=== PATIENT | male | born 1950 | race Caucasian/White ===

== ENCOUNTER 2022-04-04 07:26 | Outpatient (CLI) | payer MEDICARE, SELFPAY ==
--- NOTE | 2022-04-17 17:58 | WPDHOMESLEEP ---
Sleep Study - Home Unattended Date of Study: 04/04/22 Ordering Provider: Amalia Martinez NP Interpreting Provider: Marycarmen Andersen, DO Home Sleep Study Type: Watch PAT Height: 1.85 m Weight: 85.275 kg Body Mass Index: 24.7 Neck Circumference (inches): 16.5 [place]: 6 Reason for Sleep Study Multiple nighttime awakenings Sleep History The patient is a 72-year-old male with hypertension, hyperlipidemia, osteoarthritis and psoriasis that had a sleep study ordered by his primary care for evaluation of sleep apnea. The patient denies being awakening from sleep short of breath. He denies awakening at night with heartburn, belching or cough. He occasionally snores but it is rarely loudly enough others complain. He occasionally has trouble sleeping when he has a cold. He denies waking up gasping for air throughout the night. He denies having breathing problems at night observed by himself or others. He occasionally sweats excessively at night. He denies having heart palpitations or irregular heartbeats during the night. He rarely falls asleep during the day but never while driving. He denies sleep paralysis, cataplexy and hypnagogic / hypnopompic hallucinations. He denies having trouble at school or work due to sleepiness. He denies feeling afraid of going to sleep. He denies having nightmares. He rarely remembers his dreams. He denies having thoughts racing through his mind. He rarely feels sad or depressed. He frequently has anxiety. He occasionally has muscular tension. He denies noticing parts of his body jerk. He denies kicking during the night. He denies having crawling and aching feelings in his legs but occasionally has leg pain during the night. He occasionally grinds his teeth during sleep but never awakens with morning jaw pain. He is occasionally bothered by pain during the day and occasionally awakened by pain during the night. He rarely wakes up feeling stiff in the morning. He rarely wakes up with sore achy muscles. He denies waking up with pain in the neck, spine or joints. The patient goes to bed at 8:30 p.m. on weekdays and at 10:00 p.m. on the weekends. He is able to fall asleep quickly. He wakes up 3-4 times throughout the night for unknown reasons. When he awakens, he will watch television. He can take him 20 minutes to an hour to fall back asleep. He wakes up at 5:00 a.m. on both weekdays and weekends. He typically gets 4 hours of sleep per night. He will stay in bed for 10 minutes after waking up in the morning. He will occasionally has his girlfriend stated his house. He does not consume any caffeinated beverages within 2 hours of bedtime. He will engage in physical exercise before bedtime. He will watch television before falling asleep. He denies taking naps in the afternoon or the evening. He drinks 3 Pepsi's per day. He quit smoking cigarettes 11 years ago. He denies alcohol and recreational drug use. [facility] Past Medical History Medical History Elevated PSA, less than 10 ng/ml Encounter to establish care Hernia (~2019) Hyperlipidemia Hypertension Osteoarthritis of shoulders, bilateral Scalp psoriasis Sleeping difficulty Witnessed episode of apnea Family History Family History Father Cancer Hypertension Mother Heart disease Other Cancer Social History Social History Smoking status: Former smoker Alcohol intake: never Substance use: never Medications Home Medications Medication Instructions Recorded Confirmed Type aspirin 81 mg tablet,delayed 81 mg PO DAILY 03/09/22 03/12/22 History release carvedilol 25 mg tablet 25 mg PO Q12H 03/12/22 03/12/22 History cholecalciferol (vitamin D3) 125 125 mcg PO DAILY 03/12/22 03/12/22 History mcg (5,000 unit) capsule clobetasol 0.05 % scalp so
[2022-04-17 18:03] VITALS: BMI 24.7
--- NOTE | 2022-05-30 15:21 | SLEEP ---
instructed pt to f/u with dr escobedo she int. sleep test. he is confused by sleep result.
== END 2022-04-05 10:39 | disposition home or self-care (01) ==
PROVIDERS: PCP Nurse Practitioner Family; Visit Provider Nurse Practitioner Family
DX: G47.9 Sleep disorder, unspecified (principal); G47.33 Obstructive sleep apnea (adult) (pediatric)
CPT/HCPCS: 95800

== ENCOUNTER 2022-10-14 07:22 | Outpatient (CLI) | payer MEDICARE, SELFPAY ==
--- NOTE | 2022-11-04 12:29 | WPDSLEEPSTUD ---
Sleep Study Date of Study: 10/14/22 Ordering Provider: Amalia Martinez NP Interpreting Physician: Caitlin Osorio MD Sleep Study Type: CPAP Titration Height: 1.85 m Weight: 86.636 kg Body Mass Index: 25.2 Neck Circumference (inches): 16.5 [place]: 1 Reason for Sleep Study * 04/04/22 - Home sleep test showing mild sleep apnea with overall AHI 8.1 and desaturation to 87%. There were some central events during that study so he is not a good candidate for autoPAP. He presents for a CPAP titration. Sleep History Fili Ricardo is a 72 yo M with hypertension, hyperlipidemia, osteoarthritis and psoriasis that underwent a recent home sleep test 04/04/22 showing mild sleep apnea. He did not fill out a new sleep questionnaire for this study. The following sleep history is obtained from his previous home sleep test 04/04/22. His medical history includes hypertension, hyperlipidemia, osteoarthritis and psoriasis. The patient does not waken at night feeling short of breath.? He denies awakening at night with heartburn, belching or coughing.? He occasionally snores but it is rarely loudly enough others complain.? He occasionally has trouble sleeping when he has a cold.? He denies waking up gasping for air throughout the night.? He denies having breathing problems at night observed by himself or others.? He occasionally sweats excessively at night.? He denies having heart palpitations or irregular heartbeats during the night.? He rarely falls asleep during the day but never while driving.? He denies feeling paralyzed with strong emotion, or having vivid dreams on sleep onset or awakening. ? He denies having daytime difficulties due to sleepiness.? He denies feeling afraid of going to sleep.? He denies having nightmares.? He rarely remembers his dreams.? He denies having thoughts racing through his mind.? He rarely feels sad or depressed.? He frequently has anxiety.? He occasionally has muscular tension.? He denies noticing parts of his body jerk.? He denies kicking during the night.? He denies having crawling and aching feelings in his legs but occasionally has leg pain during the night.? He occasionally grinds his teeth during sleep but never awakens with morning jaw pain.? He is occasionally bothered by pain during the day and occasionally awakened by pain during the night.? He rarely wakes up feeling stiff in the morning.? He rarely wakes up with sore achy muscles.? He denies waking up with pain in the neck, spine or joints.? Normal bedtime is 8:30 p.m. on weekdays and at 10:00 p.m. on the weekends.? He is able to fall asleep quickly.? He wakes up 3-4 times throughout the night for unknown reasons.? When he awakens, he will watch television.? He can take him 20 minutes to an hour to fall back asleep.? He wakes up at 5:00 a.m. on both weekdays and weekends.? He typically gets 4 hours of sleep per night.? He will stay in bed for 10 minutes after waking up in the morning.? He will occasionally has his girlfriend stated his house.? He does not consume any caffeinated beverages within 2 hours of bedtime.? He will engage in physical exercise before bedtime.? He will watch television before falling asleep.? He denies taking naps in the afternoon or the evening.? Habits: Tobacco: quit over 11 years ago. Caffeine: 3 Pepsi sodas per day.? He denies alcohol and recreational drug use. [facility] Past Medical History Medical History Anxiety Elevated fasting glucose Elevated PSA, less than 10 ng/ml Encounter to establish care Hernia (~2019) Hyperlipidemia Hypertension Mild sleep apnea Osteoarthritis of shoulders, bilateral Scalp psoriasis Sleeping difficulty Witnessed episode of apnea Family History Family History Father Cancer Hypertension Mother Heart disease Other Cancer Social History Social History Sm
[2022-11-04 12:35] VITALS: BMI 25.2
--- NOTE | 2023-05-06 15:04 | SLEEP ---
pt is using dental appliance
== END 2022-10-15 07:16 | disposition home or self-care (01) ==
LOC: ANHCSM 07:25
PROVIDERS: PCP Nurse Practitioner Family; Visit Provider Nurse Practitioner Family
DX: G47.31 Primary central sleep apnea (principal); G47.33 Obstructive sleep apnea (adult) (pediatric); G47.61 Periodic limb movement disorder
CPT/HCPCS: 95811

== ENCOUNTER → 2023-11-29 08:34 | Outpatient (CLI) | payer MEDICARE, SELFPAY ==
--- NOTE | ~2023-11-29 | XR_ITS ---
XR foot LT min 3V DATE: 11/29/2023 08:50 INDICATION: Localized swelling, mass, lump, dorsum of foot TECHNIQUE: 4 views COMPARISON: None FINDINGS: There is prominent periarticular dorsal distal tarsal navicular spurring at the navicular c uneiform area, with some overlying soft tissue swelling. Mild plantar calcaneal enthesopathy without associated erosive change or periostitis. No fracture, dislocation, periosteal reaction or bone destruction. Anterior and posterior tibial artery calcifications. IMPRESSION: Prominent dorsal periarticular spur of the distal aspect of the tarsal navicular with ove rlying soft tissue swelling Mild plantar calcaneal enthesopathy Reviewed, dictated and finalized at location A. IMPRESSION: Prominent dorsal periarticular spur of the distal aspect of the tar hal navicular with overlying soft tissue swelling Mild plantar calcaneal enthesopathy
== END ==
PROVIDERS: PCP Nurse Practitioner Family; Visit Provider Nurse Practitioner Family
DX: R22.42 Localized swelling, mass and lump, left lower limb (principal); M77.32 Calcaneal spur, left foot
CPT/HCPCS: 73630

== ENCOUNTER → 2024-01-15 14:10 | Outpatient (CLI) | payer MEDICARE, SELFPAY ==
--- NOTE | ~2024-01-15 | XR_ITS ---
EXAMINATION: XR hand BI arthritis min 3V DATE: 01/15/2024 14:26 INDICATION: Pain in joints of right hand. TECHNIQUE: 4 views of right hand and 4 views of left hand on a total of 7 radiographs were obtained. COMPARISON: None. FINDINGS: RIGHT HAND: Bone alignment is normal. No fracture. There is mild osteoarthritis of second, fourth, an d fifth distal interphalangeal joints. There are soft tissue calcifications adjacent to third and fif th proximal interphalangeal joints. LEFT HAND: Bone alignment is normal. No fracture. There is mild osteoarthritis of second-fifth distal interphalangeal joints. There are soft tissue calcifications near fifth proximal interphalangeal vazquez nt. IMPRESSION: 1. Mild polyarticular osteoarthritis. 2. Periarticular soft tissue calcifications at multiple joints. Reviewed, dictated and finalized at location A.
== END ==
LOC: EXPTROY 14:15
PROVIDERS: PCP Nurse Practitioner Family; Visit Provider Nurse Practitioner Family
DX: M19.041 Primary osteoarthritis, right hand (principal); M19.042 Primary osteoarthritis, left hand
CPT/HCPCS: 73130

== ENCOUNTER → 2024-05-04 15:48 | Outpatient (CLI) | payer MEDICARE, SELFPAY ==
--- NOTE | ~2024-05-04 | XR_ITS ---
CHEST RADIOGRAPH, PA AND LATERAL CLINICAL HISTORY: R05.9 - Cough, unspecified . COMPARISON: None available TECHNIQUE: PA and lateral views of the chest. FINDINGS The cardiomediastinal silhouette is unremarkable. The lungs are clear. Visualized osseous structures and soft tissues are unremarkable. IMPRESSION: No focal infiltrate or effusion. Reviewed, dictated and finalized at location A. UDER OPERATOR
== END ==
LOC: EXPTROY 15:50
PROVIDERS: PCP Nurse Practitioner Family; Visit Provider Nurse Practitioner Family
DX: R05.9 Cough, unspecified (principal)
CPT/HCPCS: 71046

== ENCOUNTER 2024-09-08 11:15 | Outpatient (RCR) | payer MEDICARE, SELFPAY ==
--- NOTE | 2024-08-14 14:40 | OTOPEVAL1 ---
Assessment and note entered by Salty Webb, BRENNA/Bbuba, CHT OT Evaluation Information 08/14/24 Assessment Status Evaluation Diagnosis Chronic gout, unspecified, with tophus ICD-10 Condition Codes (OT) Joint stiffness of left hand M25.642,Pain in left hand M79.642 Subjective Information Patient underwent excision of left small finger nodule from the dorsum of his PIP joint. Healing was delayed due to wound dehiscence. He presents today with residual pain, stiffness, and edema restricting a functional fist/dumper mold cleaner with his left hand. He is right handed. Reported Pain Level Pain Score 0: Self Report Additional Pain Score Comments No pain at rest. Pain increases to 4/10 with exercises. Assessment OT Clinical Summary Patient referred to OT with a decline in left hand use following left small finger nodule excision. He presents with residual stiffness, weakness, and edema that limits a functional dumper mold cleaner and fist during ADLs. Skilled OT indicated to maximize functional left hand use via modalities, therapeutic exercise, manual therapy, and HEP instruction/progression. Plan of Care Interventions Therapeutic Exercise,Manual Therapy,Therapeutic Activities,Ultrasound,Paraffin OT Services Indicated Yes Treatment Frequency and 1x/week for 4 visits Duration These treatments will address the objective and functional deficits as defined above. The patient will be advanced safely and appropriately in order for the patient to progress towards his/her prior level of function. Additional exercises will be introduced and as well as a comprehensive home exercise program upon discharge, if needed, ?to ensure carryover of functional gains achieved in the clinic. This treatment plan has been reviewed and agreement upon by the patient.
--- NOTE | 2024-08-14 14:40 | OPREHPOC ---
Outpatient Therapy Plan of Care This is a Multidisciplinary Plan of Care that may contain components documented by all disciplines (PT, OT, and ST.) OT Problem 1 OT Problem #1 Knowledge Deficit OT Goal 1 Goal / Goal Update Patient to be independent with instructed materials. Target Visit 4 OT Problem 2 OT Problem #2 Impaired Range of Motion OT Goal 1 Goal / Goal Update Patient to improve functional ROM of the left small finger to improve a functional grasp during ADLs as demonstrated by: - being able to touch the small finger to his palm when making a fist - measuring <2 cm gap with hook fist Target Visit 4 OT Problem 3 OT Problem #3 Impaired Strength OT Goal 1 Goal / Goal Update Patient to improve functional showroom consultant strength of the left hand to improve a functional grasp during ADLs as demonstrated by: - improving left showroom consultant strength from 69 to 79 lbs. Target Visit 4
--- NOTE | 2024-09-08 12:04 | OTOPDC ---
Assessment and note entered by Salty Webb, OTR/L, ISAK OT D/C 09/08/24 Assessment Status Discharge Diagnosis Chronic gout, unspecified, with tophus ICD-10 Condition Codes (OT) Joint stiffness of left hand M25.642,Pain in left hand M79.642 Subjective Information - Patient underwent excision of left small finger nodule from the dorsum of his PIP joint. Healing was delayed due to wound dehiscence. - He reports improved hand use and flexibility, but notes he continues to have residual edema that prohibits his ROM - He reports experiencing reduced pain and is getting more comfortable with using his hand - He verbalizes concerns about the swelling, but does note that the swelling has improved in the finger Small finger improvements since the start of care: - MCP from 90 to 100 degrees - PIP from 75 to 80 degrees - DIP from 50 to 75 degrees - hook fist from 3 cm to 2 cm gap - full fist from 2 cm to 0 cm gap - left circuits engineer strength improved from 69 to 89 lbs. Reported Pain Level Pain Score 0: Self Report Additional Pain Score Comments No pain at rest or with use during ADLs. Reports pain if he bumps the finger. Assessment OT Clinical Summary Patient referred to OT with a decline in left hand use following left small finger nodule excision. His ROM and circuits engineer strength have made excellent progress. He is experiencing less pain and improved functional use of the hand. He continues to have residual edema. Reviewed HEP today and he is ready for discharge. D/C OT with patient independent with all materials. Plan of Care OT Services Indicated No
== END 2024-09-08 14:00 | disposition home or self-care (01) ==
LOC: ANHOT 11:15
PROVIDERS: PCP Nurse Practitioner Family; Visit Provider Physician Assistant Surgical
DX: M1A.9XX1 Chronic gout, unspecified, with tophus (tophi) (principal)
CPT/HCPCS: 97018; 97110; 97140; 97165

== ENCOUNTER 2024-12-21 12:49 | Outpatient (CLI) | payer MEDICARE, SELFPAY ==
--- OUTSIDE RECORDS SUMMARY | 2024-12-21 12:54 | XMS_ITS | Data Portability ---
Author Organization [employer], [facility] Address [address] [address] Assessment Encounter Date Assessment Date Assessment LastModified by Organization Details LastModified Time 05/09/2022 05/09/2022 72 y/o M here for a group medical visit focusing on optimizing BMAC procedure for bilateral shoulders. Preprocedural screening labs were reviewed and discussed with patient, and post-procedure plan was discussed in detail. Recommend patient continue current vitamin D supplementation. I did have a discussion with him about his PSA and A1C levels. He reports A1C that was performed approximately 8 weeks ago was 5.1, but he has had recent weight gain, which he reports has caused elevation of this in the past. Regarding his PSA, he reports he has had follow up with both his primary care physician and urologist for this and was told the level was not concerning given his age. Feel patient would benefit from attending health optimization program. He was given information regarding same. All questions answered. May follow up if he wishes to pursue health optimization. Return to clinic sooner for worsening symptoms. Greater than 20 minutes was spent with the patient in direct evaluation and subsequent care planning. Note: billing done solely on interaction of patient with NESSA [email or web address] Not available 05/09/2022 11:28:04 Plan of Treatment Reminders Order Date Submit Date Provider Last Modified By Organization Details Last Modified Time Details Appointments BIOLOGIC FOLLOW UP 2024 08:15A Matthew Graham, DO Not available Not available Not available Lab None recorded. Referral None recorded. Procedures None recorded. Surgeries None recorded. Imaging XR, hip, bilateral 11/13/ 025 Not available 11/18/2024 09:55:55 US, lower extremity , nonvascul ar 2024 025 Not available 11/18/2024 09:55:56 XR, shoulder - ROOM 2 2021 022 Not available 05/07/2022 12:54:41 US, upper extremity , nonvascul ar 2021 022 [email or web address] Not available 05/07/2022 16:41:04 Medication Orders None recorded. Patient TargetsNo targets recorded. Patient InstructionsNo instructions recorded. Reason for Referral None Reported. Results Created Date Observation Date Name Description Value Unit Range Abnormal Flag Note LastModifiedBy Organization Detail LastModifiedTime 05/01/2005/05/2022 CBC (INCL UDES DIFF/ PLT) white blood cell count 6.0 thous and/u L 3.8-10 .8 normal Not Available [address], [address], 05/05/2022 13:45:32 05/01/20 22 05/05/2022 CBC (INCL UDES DIFF/ PLT) red blood cell count 4.92 viola on/uL 4.20-5 .80 normal Not Available [address], [address], 05/05/2022 13:45:32 05/01/20 22 05/05/2022 CBC (INCL UDES DIFF/ PLT) hemoglobin 14.9 g/dL 13.2-1 7.1 normal Not Available [address], [address], 05/05/2022 13:45:32 05/01/20 22 05/05/2022 CBC (INCL UDES DIFF/ PLT) hematocrit 43.9 % 38.5-5 0.0 normal Not Available [address], [address], 05/05/2022 13:45:32 05/01/20 22 05/05/2022 CBC (INCL UDES DIFF/ PLT) MCV 89.2 fL 80.0-1 00.0 normal Not Available [address], [address], 05/05/2022 13:45:32 05/01/20 22 05/05/2022 CBC (INCL UDES DIFF/ PLT) MCH 30.3 pg 27.0-3 3.0 normal Not Available [address], [address], 05/05/2022 13:45:32 05/01/20 22 05/05/2022 CBC (INCL UDES DIFF/ PLT) MCHC 33.9 g/dL 32.0-3 6.0 normal Not Available [address], [address], 05/05/2022 13:45:32 05/01/20 22 05/05/2022 CBC (INCL UDES DIFF/ PLT) RDW 12.5 % 11.0-1 5.0 normal Not Available [address], [address], 05/05/2022 13:45:32 05/01/20 22 05/05/2022 CBC (INCL UDES DIFF/ PLT) platelet count 249 thous and/u L 140-40 0 normal Not Available [address], [address], 05/05/2022 13:45:32 05/01/20 22 05/05/2022 CBC (INCL UDES DIFF/ PLT) MPV 11.2 fL 7.5-12 .5 normal Not Available [address], [address], 05/05/2022 13:45:32 05/01/20 22 05/05/2022 CBC (INCL UDES DIFF/ PLT) absolute neutrophils 3312 cells /uL 1500-7 800 normal Not Available [address], [address], 05/05/2022 13:45:32 05/01/20 22 05/05/2022 CBC (INCL UDES DIFF/ PLT) absolute lymphocytes 1776 cells /uL 850-39 00 normal Not Available [address], [address], 05/05/2022 13:45:32 05/01/20 22 05/05/2022 CBC (INCL UDES DIFF/ PLT) absolute monocytes 702 cells /uL 200-95 0 normal Not Available [address], [address], 05/05/2022 13:45:32 05/01/20 22 05/05/2022 CBC (INCL UDES DIFF/ PLT) absolute eosinophils 162 cells /uL 15-500 normal Not Available [address], [address], 05/05/2022 13:45:32 05/01/20 22 05/05/2022 CBC (INCL UDES DIFF/ PLT) absolute basophils 48 cells /uL 0-200 normal Not Available [address], [address], 05/05/2022 13:45:32 05/01/20 22 05/05/2022 CBC (INCL UDES DIFF/ PLT) neutrophils 55.2 % normal Not Available [address], [address], 05/05/2022 13:45:32 05/01/20 22 05/05/2022 CBC (INCL UDES DIFF/ PLT) lymphocytes 29.6 % normal Not Available [address], [address], 05/05/2022 13:45:32 05/01/20 22 05/05/2022 CBC (INCL UDES DIFF/ PLT) monocytes 11.7 % normal Not Available [address], [address], 05/05/2022 13:45:32 05/01/20 22 05/05/2022 CBC (INCL UDES DIFF/ PLT) eosinophils 2.7 % normal Not Available [facility] [address] [place], [address], 05/05/2022 13:45:32 05/01/20 22 05/05/2022 CBC (INCL UDES DIFF/ PLT) basophils 0.8 % normal Not Available [facility] [address] [place], [address], 05/05/2022 13:45:32 05/01/20 22 05/05/2022 HS CRP hs CRP 0.9 mg/L normal Refer ence Range Optim al <1.0 Amanda galindo PS et al. Endoc r Pract .2017 ;23(S uppl 2):1- 87. For ages >17 Years : hs-CR P mg/L Risk Accor ding to AHA/C DC Guide lines <1.0 Lower relat verenice cardi ovasc ular risk. 1.0-3 .0 [place] ge relat verenice cardi ovasc ular risk. 3.1-1 0.0 Highe r relat verenice cardi ovasc ular risk. Consi amando retes ting in 1 to 2 weeks to exclu de a benig n trans ient eleva tion in the basel ine CRP value secon brigette to infec tion or infla mmati on. >10.0 Persi stent eleva tion, upon retes ting, may be assoc iated with infec tion and infla mmati on. Not Available [facility] [address] [place], [address], 05/05/2022 13:45:33 05/01/20 22 05/05/2022 PSA, TOTAL PSA, total 4.11 NG/mL < or = 4.00 high The total PSA value from this assay syste m is stand ardiz ed again st the WHO stand ricky. The test resul t will be appro ximat hanane 20% lower when cornelio red to the equim olar- stand ardiz ed total PSA (Jacobs man Coult er). Cornelio rison of seria l PSA resul ts shoul d be inter prete d with this fact in mind. This test was perfo rmed using the Sieme ns chemi lumin escen t metho d. Value s obtai jigna from diffe rent assay metho ds canno t be used inter alejandro eably . PSA level s, regar dless of value , shoul d not be inter prete d as absol ak chin evide nce of the prese nce or absen ce of disea se. Not Available [facility] [address] [address], [place], [address], 05/05/2022 13:45:34 05/01/2005/05/2022 VITAM IN D,25- OH,TO CARTER,I A vitamin D,25-oh,tota l,ia 61 NG/mL 30-100 normal Vitam in D Statu s 25-OH Vitam in D: Defic iency : <20 ng/mL Insuf ficie ncy: 20 - 29 ng/mL Optim al: > or = 30 ng/mL For 25-OH Vitam in D testi ng on patie nts on D2-kidd pplem entat ion and patie nts for whom quant itati on of D2 and D3 fract ions is requi red, the [facility] e[facility](TM ) 25-OH VIT D, (D2,D 3), LC/MS /MS is recom leanna d: order code [id number] (el ents >2yrs ). See Note 1 Note 1 For addit ional infor janna mahajan refer to http: //lul Trotter stDia gnost ics.c om/fa q/FAQ 199 (This link is being provi ded for infor haritha johnston/ yvrose gonzalez purpo ses only. ) Not Available [facility] [address] [address], [place], [address], 05/05/2022 13:45:34 05/01/2005/05/2022 HEMOG LOBIN A1C hemoglobin A1C 5.9 %_of_ total _HGB <5.7 high For someo ne witho ut known diabe wyatt, a hemog lobin A1c value betwe en 5.7% and 6.4% is consi stent with predi abete s and shoul d be confi rmed with a follo w-up test. For someo ne with known diabe wyatt, a value <7% indic ates that their diabe wyatt is well contr olled . A1c targe ts shoul d be indiv idual ized based on durat ion of diabe wyatt, age, comor bid condi tions , and other consi derat ions. This assay resul t is consi stent with an incre ased risk of diabe wyatt. Curre ntly, no conse nsus exist s regar ding use of hemog lobin A1c for diagn osis of diabe wyatt for child dia. Not Available [facility] [address] [place], [address], 05/05/2022 13:45:35 05/01/20 22 05/05/2022 TESTO STERO NE, FREE (DIAL YSIS) AND TOTAL ,MS testosterone , total, MS 404 NG/dL 250-11 00 For addit ional infor janna mahajan e refer to https ://ed ucati on.qu estdi [employer]. com/f aq/FA Q165 (This link is being provi ded for infor haritha nal/e ducat ional purpo ses only. ) (Note ) This test was devel oped and its alexei tical perfo rmanc e serge cteri stics have been deter mined by [employer]. It has not been clear ed or appro mariana by the FDA. This assay has been valid ated pursu ant to the CLIA regul ation s and is used for clini mika purpo ses. Not Available [facility] [address] [place], [address], 05/05/2022 13:45:35 05/01/20 22 05/05/2022 TESTO STERO NE, FREE (DIAL YSIS) AND TOTAL ,MS testosterone , free 55.7 pg/mL 30.0-1 35.0 (Note ) This test was devel oped and its alexei tical perfo rmanc e serge cteri stics have been deter mined by [facility]. It has not been clear ed or appro mariana by the FDA. This assay has been valid ated pursu ant to the CLIA regul ation s and is used for clini mika purpo ses. MD[facility] med fusio n [address] [facility] [address] [facility] [address] [phone] Roddy renee MD Not Available [facility] [place] [address] [place], [address], 05/05/2022 13:45:35 11/14/1911/14/2024 LAB DEVEL OPED TESTI NG lab developed testing normal Testi ng Perfo rmed At: [facility], [address] [place] [address], Labor atory Dire tor: Saurabh Frazier M.D Serum Pregn enolo ne, DHT, Estro ne, Estri ol, RT3, CO-Q1 0, Total Testo stero ne LC/MS , Parish stene sangita LC/MS , Proge stero ne LC/MS , and Estra diol LC/MS were devel oped and their perfo rmanc e serge cteri stics deter mined by [facility]. It has not been clear ed or appro mariana by the FDA. The labor atory is regul ated under CLIA and quali fied to perfo rm high- compl exity testi ng. These tests are used for clini mika purpo ses. It shoul d not be regar ded as inves tigat ional or for resea h. Not Available [facility] [place] [address] [place], [address], 11/17/2024 17:10:18 11/14/19 25 11/14/2024 BTMG EXPAN DED MALE PRE comment: See Compon ents normal Testi ng Perfo rmed At: [facility], [address], [place] [address], Labor atory Direc tor: Saurabh Frazier M.D Not Available [facility] [place] [address], [place], [address], 11/17/2024 17:10:18 11/14/1911/17/2024 ESTRA DIOL, LC/MS estradiol, lc/MS 19.1 pg/mL <29.0 normal Testi ng Perfo rmed At: [facility], [address], [place] [address], Labor atory Direc tor: Saurabh Frazier M.D Not Available [facility] - [address] [place], [address], 11/17/2024 17:10:19 11/14/19 25 11/14/2024 PSA, TOTAL PSA, total 1.830 NG/mL 0.000- 4.000 normal Testi ng Perfo rmed At: [facility], [address], [place] [address], Labor atory Direc tor: Saurabh Frazier M.D The above test is perfo rmed by [facility] [place]. Patie nt resul ts perfo rmed by diffe rent assay metho ds may not be cornelio rable . Not Available [facility] [place] [address], [place], [address], 11/17/2024 17:10:19 11/14/1911/14/2024 T4, FREE T4, free 1.58 NG/dL 0.89-1 .76 normal Testi ng Perfo rmed At: [facility], [address], [place] [address], Labor atory Direc tor: Saurabh Frazier M.D Not Available [facility] - [address], [address], 11/17/2024 17:10:20 11/14/1911/14/2024 THYRO ID PEROX IDASE ABS thyroid peroxidase abs 30 IU/mL <60 normal Testi ng Perfo rmed At: [facility], [address], [place] [address], Labor atory Direc tor: Saurabh Frazier M.D Not Available [facility] - [address], [address], 11/17/2024 17:10:21 11/14/1911/14/2024 CMP WITH GFR glucose 128 mg/dL 65-100 high Testi ng Perfo rmed At: [facility], [address], [place] [address], Labor atory Direc tor: Saurabh Frazier M.D Not Available [facility] - [address], [address], 11/17/2024 17:10:21 11/14/1911/14/2024 CMP WITH GFR BUN 24 mg/dL 6-20 high Not Available [facility] - [address], [address], 11/17/2024 17:10:21 11/14/1911/14/2024 CMP WITH GFR creatinine, serum 1.3 mg/dL 0.7-1. 3 normal Not Available [facility] - [address], [address], 11/17/2024 17:10:21 11/14/1911/14/2024 CMP WITH GFR sodium 142 mmol/ L 136-14 5 normal Not Available [facility] - [address], [address], 11/17/2024 17:10:21 11/14/1911/1411/14/2024 CMP WITH GFR potassium 4.5 mmol/ L 3.5-5. 1 normal Not Available [facility] - [address], [address], 11/17/2024 17:10:21 11/14/19 25 11/14/2024 CMP WITH GFR chloride 106 mmol/ L 100-11 0 normal Not Available [facility] - [address], [address], 11/17/2024 17:10:21 11/14/19 25 11/14/2024 CMP WITH GFR CO2 24 mmol/ L 20-31 normal Not Available [facility] - [address], [address], 11/17/2024 17:10:21 11/14/19 25 11/14/2024 CMP WITH GFR calcium 9.1 mg/dL 8.3-10 .6 normal Not Available [facility] - [address], [address], 11/17/2024 17:10:21 11/14/19 25 11/14/2024 CMP WITH GFR total protein 6.5 g/dL 5.7-8. 2 normal Not Available [facility] - [address], [address], 11/17/2024 17:10:21 11/14/19 25 11/14/2024 CMP WITH GFR albumin 4.3 g/dL 3.2-4. 8 normal Not Available [facility] - [address], [address], 11/17/2024 17:10:21 11/14/19 25 11/14/2024 CMP WITH GFR bilirubin, total 0.5 mg/dL 0.2-1. 1 normal Not Available [facility] - [address], [address], 11/17/2024 17:10:21 11/14/19 25 11/14/2024 CMP WITH GFR alkaline phosphatase 80 U/L 45-115 normal Not Available [facility] - [address], [address], 11/17/2024 17:10:21 11/14/19 25 11/14/2024 CMP WITH GFR ALT 43 U/L 0-48 normal Not Available [facility] - [address], [address], 11/17/2024 17:10:21 11/14/19 25 11/14/2024 CMP WITH GFR AST 27 U/L 0-38 normal Not Available [facility] - [address], [address], 11/17/2024 17:10:21 11/14/19 25 11/14/2024 CMP WITH GFR albumin/glob ulin ratio 2.0 0.8-2. 0 normal Not Available [facility] - [address], [address], 11/17/2024 17:10:21 11/14/19 25 11/14/2024 CMP WITH GFR BUN/creat ratio N/A 7.3 - 21.7 normal Not Available [facility] - [address], [address], 11/17/2024 17:10:21 11/14/19 25 11/14/2024 CMP WITH GFR globulin 2.2 g/dL 2.1-3. 6 normal Not Available [facility] - [address], [address], 11/17/2024 17:10:21 11/14/19 25 11/14/2024 CMP WITH GFR GFR, estimated 58 mL/mi n normal If Afric an-Am kal n, resul t is: >60 Calcu latio n of estim ated GFR is based on the MDRD Study predi ction equat ion F verenice Stage s of Chron ic Kidne y Disea se * *Stag e* *GFR Level * *Desc ripti on* Stage 1 90 ml/mi n or more Healt hy Kidne ys or Kidne y damag e with mariangel l or high GFR Stage 2 60 to 89 ml/mi n Kidne y damag e and mild decre ase in GFR Stage 3 30 to 59 ml/mi n Moder ate decre ase in GFR Stage 4 15 to 29 ml/mi n Sever e decre ase in GFR Stage 5 < 15 ml/mi n Kidne y failu re, or on dialy sis Not Available [facility] - [address], [address], 11/17/2024 17:10:21 11/14/19 25 11/14/2024 LH LH 4.8 mIU/m L 3.1-34 .6 normal Testi ng Perfo rmed At: [facility], [address] [place] [address], Labor atory Direc tor: Saurabh Frazier M.D Not Available [facility] - [address], [address], 11/17/2024 17:10:22 11/14/19 25 11/14/2024 VITAM IN B12 vitamin B12 338 pg/mL 211-91 1 normal Testi ng Perfo rmed At: [facility], [address] [place] [address], Labor atory Direc tor: Saurabh Frazier M.D Not Available [facility] - [address], [address], 11/17/2024 17:10:22 11/14/19 25 11/14/2024 TESTO STERO NE LCMS TOT albumin 4.3 g/dL 3.2-4. 8 normal Not Available [facility] - [address], [address], 11/17/2024 17:10:23 11/14/19 25 11/14/2024 TESTO STERO NE LCMS TOT sex hormone bind globulin 41 nmol/ L 22-113 normal Not Available [facility] - [address], [address], 11/17/2024 17:10:23 11/14/19 25 11/17/2024 TESTO STERO NE LCMS TOT testosterone , free lc/MS 6.7 NG/dL 3.7-20 .0 normal Testi ng Perfo rmed At: [facility], [address], [place] [address], Labor atory Direc tor: Saurabh Frazier M.D Not Available [facility] - [address], [address], 11/17/2024 17:10:23 11/14/19 25 11/17/2024 TESTO STERO NE LCMS TOT testosterone , total lc/MS 377.9 NG/dL 264.0- 916.0 normal Not Available [facility] - [address], [address], 11/17/2024 17:10:23 11/14/1911/14/2024 T3, FREE T3, free 2.9 pg/mL 2.3-4. 2 normal Testi ng Perfo rmed At: [facility], [address], [place] [address], Labor atory Direc tor: Saurabh Frazier M.D Not Available [facility] - [address], [address], 11/17/2024 17:10:23 11/14/19 25 11/14/2024 TSH TSH 1.308 uIU/m L 0.550- 4.780 normal Testi ng Perfo rmed At: [facility], [address], [place] [address], Labor atory Direc tor: Saurabh Frazier M.D Not Available [facility] - [address], [address], 11/17/2024 17:10:24 11/14/19 25 11/14/2024 CBC hematocrit 47.2 % 42.0-5 6.0 normal Testi ng Perfo rmed At: [facility], [address] [facility] [address], Labor atory Direc tor: Saurabh Frazier M.D Not Available [facility] - [address], [address], 11/17/2024 17:10:24 11/14/19 25 11/14/2024 CBC hemoglobin 14.6 g/dL 13.2-1 8.0 normal Not Available [facility] - [address], [address], 11/17/2024 17:10:24 11/14/19 25 11/14/2024 CBC red blood cell 4.72 M/uL 4.20-6 .00 normal Not Available [facility] - [address], [address], 11/17/2024 17:10:24 11/14/19 25 11/14/2024 CBC white blood cell 6.5 K/uL 3.9-11 .4 normal Not Available [facility] - [address], [address], 11/17/2024 17:10:24 11/14/19 25 11/14/2024 CBC MCV 100 fL 83-102 normal Not Available [facility] - [address], [address], 11/17/2024 17:10:24 11/14/19 25 11/14/2024 CBC MCHC 30.9 g/dL 29.5-3 5.5 normal Not Available [facility] - [address], [address], 11/17/2024 17:10:24 11/14/19 25 11/14/2024 CBC MCH 30.9 pg 26.0-3 4.0 normal Not Available [facility] - [address], [address], 11/17/2024 17:10:24 11/14/19 25 11/14/2024 CBC RDW 14.0 % 11.0-1 5.5 normal Not Available [facility] - [address], [address], 11/17/2024 17:10:24 11/14/19 25 11/14/2024 CBC platelet count 250 k/uL 140-40 0 normal Not Available [facility] - [address], [address], 11/17/2024 17:10:24 11/14/19 25 11/14/2024 CBC MPV 11.4 fL 7.5-11 .6 normal Not Available [facility] - [address], [address], 11/17/2024 17:10:24 11/14/19 25 11/14/2024 VITAM IN D,25- HYDRO XY vitamin D,25-oh,tota l 77 NG/mL 30-100 normal Testi ng Perfo rmed At: [facility], [address] [place] [address], Labor atory Direc tor: Saurabh Frazier M.D Notes : Thera py is based on the measu remen t of Total Vitam in D (25-O H). Most exper ts agree that Vitam in D defic iency shoul d be = or < 20 ng/ml . Vitam in D insuf ficie ncy is recog nized as 21 - 29 ng/ml . The prefe rred level for Vitam in D (25-O H)is recom leanna d to be 30 - 100 ng/ml . Vitam in D > 150 ng/ml is consi dered virginie tiall y toxic . Not Available [facility] - [address], [address], 11/17/2024 17:10:25 11/14/19 25 11/14/2024 PROLA CTIN prolactin 7.3 NG/mL 2.1-17 .7 normal Testi ng Perfo rmed At: [facility], [address], [place] [address], Labor atory Direc tor: Saurabh Frazier M.D Not Available [facility] - [address], [address], 11/17/2024 17:10:25 11/14/1911/14/2024 HEMOG LOBIN A1C hemoglobin A1C 6.1 % < 5.7 high Testi ng Perfo rmed At: [facility], [address], [place] [address], Labor atory Direc tor: Saurabh Frazier M.D Diagn osis HbA1c Level Mariangel l <5.7 % Predi abete s 5.7-6 .4 % Diabe wyatt = or >6.5 % Not Available [facility] - [address], [address], 11/17/2024 17:10:26 11/14/1911/14/2024 CRP, INFLA MMATI ON CRP, inflammation 1.8 mg/L <5.0 normal Testi ng Perfo rmed At: [facility], [address], [place] [address], Labor atory Direc tor: Saurabh Frazier M.D Not Available [facility] - [address], [address], 11/17/2024 17:10:26 Result Notes None recorded. Problems No Known Problems Medical Equipment None Reported. Allergies No known drug allergies Medications Name Sig Start Date Stop Date Status Note LastModified by Organization Details LastModified Time diclofenac 75 mg-misoprost ol 200 mcg tablet,immed iate,delayed release TAKE 1 TABLET BY MOUTH TWICE DAILY WITH MEALS NEEDED active Not Available Not Available No t Available carvedilol 25 mg tablet TAKE 1 TABLET BY MOUTH TWICE DAILY active Not Available Not Available No t Available carvedilol 12.5 mg tablet TAKE 1 TABLET BY MOUTH TWICE DAILY active Not Available Not Available No t Available clindamycin HCl 300 mg capsule TAKE 1 CAPSULE BY MOUTH EVERY 12 HOURS active Not Available Not Available No t Available ammonium lactate 12 % lotion APPLY TWICE DAILY TO ARMS AND HANDS TO INCREASE MOISTURE AND REDUCE EASY BRUISING. IT CAN ALSO BE USED SAFELY ON NECK, CHEST AND LEGS IF DESIRED. FACIAL USE IS FINE WELL, BUT SCENT IS SOMETIMES BOTHERSOME active Not Available Not Available N ot Available benzonatate 200 mg capsule TAKE 1 CAPSULE BY MOUTH THREE TIMES DAILY NEEDED FOR COUGH active Not Available Not Available No t Available atenolol 100 mg tablet TAKE 1 TABLET BY MOUTH ONCE DAILY active Not Available Not Available No t Available prednisone 20 mg tablet TAKE 2 TABLETS BY MOUTH ONCE DAILY IN THE MORNING FOR 2 DAYS, THEN 1 TABLET ONCE DAILY FOR 5 DAYS active Not Available Not Available No t Available amlodipine 2.5 mg tablet TAKE 2 TABLETS BY MOUTH ONCE DAILY IN THE MORNING AND 1 IN THE EVENING active Not Available Not Available Not Available allopurinol 100 mg tablet TAKE 2 TABLETS BY MOUTH ONCE DAILY active Not Available Not Available No t Available tramadol 50 mg tablet TAKE 1 TABLET BY MOUTH EVERY 6 HOURS NEEDED active Not Available Not Available No t Available cephalexin 500 mg capsule TAKE FOUR CAPSULES BY MOUTH ONE HOUR BEFORE APPOINTMENT active Not Available Not Available Not Available clotrimazole -betamethaso ne 1 %-0.05 % topical cream APPLY AND RUB IN A THIN FILM TO AFFECTED AREAS TWICE DAILY (MORNING AND EVENING) active Not Available Not Available No t Available venlafaxine 50 mg tablet TAKE 1 TABLET BY MOUTH ONCE DAILY active Not Available Not Available No t Available diclofenac sodium 75 mg tablet,delay ed release Take 1 tablet twice a day by oral route. active Not Available Not Available No t Available irbesartan 150 mg tablet TAKE 1 TABLET BY MOUTH ONCE DAILY active Not Available Not Available No t Available diazepam 10 mg tablet ARRIVE 15 MINUTES AND TAKE ONE TABLET BY MOUTH IN CLINIC AND REPEAT DIRECTED active Not Available Not Available No t Available zolpidem 10 mg tablet TAKE ONE TABLET BY MOUTH ONCE TO TAKE ON THE NIGHT OF SLEEP STUDY active Not Available Not Available No t Available methylpredni solone 4 mg tablets in a dose pack TAKE BY MOUTH DIRECTED ON INSIDE OF PACKAGE active Not Available Not Available No t Available colchicine 0.6 mg tablet TAKE 2 TABLETS BY MOUTH AT THE FIRST SIGN OF FLARE, FOLLOWED BY 1 TABLET 1 HOUR LATER NEEDED. DAY 2 AND AFTER TAKE 1 TABLET 1 TO 2 TIMES PER DAY UNTIL FLARE RESOLVES. CALL IF NO IMPROVEMENT active Not Available Not Available Not Available clobetasol 0.05 % scalp solution APPLY TO THE AFFECTED AREA(S) ONCE DAILY NEEDED FOR PSORIASIS active Not Available Not Available No t Available atenolol 50 mg tablet TAKE 1 TABLET BY MOUTH ONCE DAILY active Not Available Not Available No t Available irbesartan 300 mg tablet TAKE 1 TABLET BY MOUTH ONCE DAILY active Not Available Not Available No t Available ezetimibe 10 mg tablet TAKE 1 TABLET BY MOUTH ONCE DAILY active Not Available Not Available No t Available tadalafil 5 mg tablet TAKE 1 TABLET BY MOUTH ONCE DAILY active Not Available Not Available No t Available venlafaxine active Not Available Not A vailable Not Available carvedilol active Not Available Not Av ailable Not Available misoprostol active Not Available Not A vailable Not Available ezetimibe active Not Available Not Peggy ilable Not Available ID NOW COVID-19 Test Kit TEST DIRECTED TODAY active Not Available Not Available No t Available Vitals Date Recorded Body height Body mass index (BMI) Body weight Heart rate Systolic And Diastolic Provider Name and Address Organization Details Last Updated DateTime 11/13/2024 185.42 cm 25.1 kg/m2 96070.55 g 74 /min 132/78 mm[Hg] Claire Dugan [facility] 11/13/2024 09:48:20 Date Recorded Body height Body mass index (BMI) Body weight Provider Name and Address Organization Details Last Updated DateTime 05/01/2022 185.42 cm 25.1 kg/m2 09057.55 g Katlyn Bardales [facility] 05/01/2022 08:47:14 Date Recorded Body height Body mass index (BMI) Body weight Heart rate Systolic And Diastolic Provider Name and Address Organization Details Last Updated DateTime 05/09/2022 185.42 cm 25.1 kg/m2 70775.55 g 69 /min 160/77 mm[Hg] Patricia [facility] 10:43:10 Social History None recorded. Functional Status None recorded. Mental Status None recorded. Family History Relationship Description Onset Age of this Age Resolved Age Notes LastModified by Organization Details LastModified Time Unspecified Relation Heart disease [email or web address] Not available 2024 09:48:43 Unspecified Relation Hypertensive disorder [email or web address] Not available 2024 09:48:49 Unspecified Relation Malignant neoplastic disease [email or web address] Not available 2024 09:48:58 Medical History Condition Response HIV or AIDS N Coronary Artery Disease N Other Cancer N Gout N Kidney Stones N Hyperthyroidism N Breast Cancer N Hernia Y Head Trauma/Injury N Lung Cancer N Blood Clots N COPD N Depression N Hypothyroidism N Lung Disease N Pneumonia N Pacemaker N Parkinson's N Anxiety Disorder N Multiple Sprains N Arthritis Y Alcohol / Substance Abuse N Kidney Cancer N Cancer N Stroke N Melanoma N Amparo Danlos Syndrome (EDS) N Bowel Dysfunction N Neck Injury N Leg or Foot Ulcers N High Cholesterol N Skin Cancer N Liver Disease N Rheumatoid Arthritis N Headaches N Fibromyalgia N Gastric Issues N Concussion N Kidney Disease N Heart Problems N Scoliosis N Chronic use of Pain Medication N Prostate Cancer N Migraines N Thyroid Problems N Alzheimers N DVT N Autoimmune Disorder N Anemia N Multiple Sclerosis N Tendon Tear N Ulcers N Heart Attack ([place]) N Osteopenia N Diabetes N Bleeding Disorder N Seizures/Epilepsy N Cardiac Stent N Tuberculosis N A-FIB N BPH N Lymphoma N Urinary Tract Infection N Back Problems N Diverticulitis N Dementia N Asthma N Vision Problems N Lupus N Fci Medication Use N Peripheral Vascular Disease N Sleep Apnea N Sleep Disorder N GERD/Reflux N Hepatitis N Aneurysm N Thyroid Cancer N Heart Disease N Bronchitis N Pulmonary Embolism N Hypertension Y Osteoporosis N Past Encounters Encounter ID Performer Location Encounter Start Date Encounter Closed Date Diagnosis/Indication Diagnosis SNOMED-CT Code Diagnosis ICD10 Code Diagnosis Note [id number] Leo Graham DO [facility] [address] [facility] ,[address] [place] [address] 05/01/2022 08:04:08 05/07/2022 12:54:41 Pain of shoulder region 80893321 M25.511 M25.512 I discussed with the patient today and we will continue to follow him for his shoulders and he will decide which way he would like to go with treatment. We did discuss possible steroid injection, physical therapy, biologic injection, surgical referral. The patient is very dedicated to avoiding a surgery at this time. We did discuss this at length. He is aware the biologic treatment would be investigat ional in nature and no results could be guaranteed from this type of treatment. He will think over his options and let us know which way he would like to proceed. [id number] MAICO CASTILLO PA-C [facility] [address] [facility] ,[address] [place] [address] 05/09/2022 10:28:37 05/15/2022 16:43:53 Bilateral shoulder osteoarthritis [id number] M19.011 M19.012 [id number] [facility] [address] [facility] ,[address] [place] [address] 11/13/2024 08:11:40 11/18/2024 09:55:55 Pain of hip region [id number] M25.551 M25.552 We discussed several different options for potential treatment including physical therapy, steroid injection, surgical referral as well as biologic therapy. The patient has had success with biologic therapy but he is aware that this would be investigat ional in nature and no results can be guaranteed from this type of treatment. He will still think over his options and let me know which way he wants to proceed. I did spend over 20 minutes total in evaluation of the patient, review of records and results, and/or the intake process. Health Concerns Section Related Observation LastModified by Organization Detai ls LastModified Time None Recorded Concern Status LastModified by Organization Details LastModified Time None Recorded Advance Directives Directive None Recorded Payers Insurance Date Sequence Insurance Name Policy Number Policy Krishnan Covered Member ID Krishnan Member ID Guarantor Name 12/07/2024 2 [employer] (MEDICARE SUPPLEMENT) Fili Ricardo [id number] Fili Ricardo 12/07/2024 1 MEDICARE [place]: S Fili Ricardo [id number] Fili Ricardo 11/10/2024 2 [facility] Fili Ricardo [id number] Fili Ricardo Notes Date Note Type Note Provider Name and Address Organization Details Recorded Time 05/01/2022 text/html Patient is a 72-year-old male who is seen today for bilateral shoulder pain. He states this has been present for several years at this point. Gradually worsened over time. Overhead work is very painful. This is where he notices it most. Is usually a dull achy pain after that. There is been a popping sensation at times. He did end up having a steroid injection into the left and the PRP injection into the right both of which had some mild beneficial improvement. He is looking for more longstanding [place] [address], [place], [address], [employer] [place] 05/06/2022 14:18:37 05/09/2022 text/html 72 y/o M present s for group medical visit focusing on treatment optimization for upcoming biologic treatment. Patient has an upcoming BMAC treatment scheduled for bilateral shoulders on 05/19/2022. He presents today for lab review and to discuss post-procedural recommendations. Today he reports continued pain in the right and left shoulder, which has been gradually worsening for several years. He denies any new or different symptoms since his initial visit on 05/01/2022. He otherwise denies acute complaints, including no fever or recent illness, CP, SOB. MAICO CASTILLO PA-C [address] [facility], [place], [address], [employer] [place] 05/09/2022 11:45:38 11/13/2024 text/html The patient is a 74-year-old male who presents for evaluation of bilateral hip pain, which he reports began approximately 30 to 45 days ago. There was no known injury. His pain is overall dull but can be sharp in the morning when he gets up out of bed. It is associated with stiffness and variable in its severity level. He has noticed that chiropractic adjustments and some therapy have helped minimally. He does sleep with a pillow between his legs, which seems to help additionally. No other treatment so far and no injections have been performed. He reports that the pain in his hips started about 45 days ago. He has been sleeping on his left side due to his hip condition, which occasionally results in morning tenderness that subsides throughout the day. He has been using two pillows between his knees while sleeping on his left side, which seems to alleviate the right hip pain upon waking. However, if he does not use the pillows, he experiences severe right hip pain in the morning, which can take up to 10 minutes to resolve. He has been receiving critical care unit nurse for an extended period, but it has ceased to provide relief. He also tried acupuncture, but found it only provided temporary relief. He has been undergoing Postural [employer] [place] therapy every two weeks, which has successfully eliminated his back pain. He has not received any injections for his hip pain. He is interested in exploring biologic therapy as a potential treatment option. Supplemental Information He has a history of shoulder issues, which have improved significantly over the past six months. He has a history of spinal issues at L3, L4, and L5, but these have not caused him any significant problems. Prolonged standing does result in back pain. A consultation with a spine surgeon revealed that his nerve openings are normal, and surgery was not recommended as it would not address [place]. [place] [address], [place], [address], [facility] 11/13/2024 12:19:23
--- NOTE | 2024-12-21 14:15 | NEURO_ITS ---
Impression: # Complains of numbness of right hand of long duration. ? # Right Carpal Tunnel Syndrome. ? # Abnormal needle/EMG exam with neurogenic changes noted. Nerve Conduction Studies ?Stim Site NR Peak (ms) P-T Amp (?V) Site1 Site2 Delta-P (ms) Dist (cm) Vlad (m/s) Right Median Anti Sensory (2-3nd Digit) Wrist ? 8.5 24.9 Wrist 2-3nd Digit 8.5 14.0 16 Wrist ? 6.5 23.0 Wrist 2-3nd Digit 8.5 14.0 16 Right Radial Anti Sensory (Base 1st Digit) Wrist ? 3.1 16.2 Wrist Base 1st Digit 3.1 0.0 Right Ulnar Anti Sensory (5th Digit) Wrist ? 3.4 17.4 Wrist 5th Digit 3.4 14.0 41 ?Stim Site NR Onset (ms) O-P Amp (mV) Site1 Site2 Delta-0 (ms) Dist (cm) Vlad (m/s) Right Median Motor (Abd Poll Brev) Wrist ? 8.0 1.3 Elbow Wrist 6.1 31.0 51 Elbow ? 14.1 3.4 Right Ulnar Motor (Abd Dig Minimi) Wrist ? 2.8 7.1 A Elbow Wrist 6.6 33.0 50 A Elbow ? 9.4 5.3 B Elbow Wrist 4.6 23.0 50 B Elbow ? 7.4 4.5 Electromyography ?Side Muscle Nerve Root Ins Act Fibs Amp Dur Recrt Comment Right 1stDorInt Ulnar C8-T1 Nml Nml Nml Nml Nml Right Ext Indicis Radial (Post Int) C7-8 Nml Nml Nml Nml Nml Right Ext Digitorum Radial (Post Int) C7-8 Nml Nml Nml Nml Nml Right BrachioRad Radial C5-6 Nml Nml Nml Nml Nml Right PronatorTeres Median C6-7 Nml Nml Nml Nml Nml Right Abd Poll Brev Median C8-T1 Incr Nml Nml >12ms +1 Right ABD Dig Min Ulnar C8-T1 Nml Nml Nml Nml Nml Right FlexPolLong Median (Ant Int) C7-8 Nml Nml Nml Nml Nml Right Abd Poll Long Radial (Post Int) C7-8 Nml Nml Nml Nml Nml
== END 2024-12-21 12:50 | disposition home or self-care (01) ==
LOC: ANHNEURO 12:51
PROVIDERS: PCP Nurse Practitioner Family; Visit Provider Nurse Practitioner Family
DX: G56.01 Carpal tunnel syndrome, right upper limb (principal)
CPT/HCPCS: 95886; 95909

== ENCOUNTER 2025-05-01 14:49 | Emergency (ER) | payer MEDICARE, SELFPAY ==
--- NOTE | 2025-05-01 14:50 | ED.EAR ---
HPI - Ear Problem General Chief complaint: Ear Stated complaint: LT Ear pain Time Seen by Provider: 05/01/25 14:50 Source: patient Mode of arrival: ambulatory Limitations: no limitations History of Present Illness HPI Narrative: Fili is a 75 year old male patient presenting to the clinic today with c/o left ear pain x1 day. He reports developed ear pain yesterday. Is having pain with biting down over his left ear. No fevers, chills, body aches. Denies any recent swimming. No drainage coming from the ear. Related Data Home Medications ?Medication ?Instructions ?Recorded ?Confirmed ?Last Taken ?Type cholecalciferol (vitamin D3) 125 125 mcg PO DAILY 03/12/22 05/01/25 Unknown History mcg (5,000 unit) capsule Allergies Allergy/AdvReac Type Severity Reaction Status Date / Time [id number] Reductase AdvReac Intermediate Muscle Pain Verified 05/01/25 14:55 Inhibitor Review of Systems Review of Systems: Pertinent positives per HPI. Patient denies any fever, chills, rash, headache, visual changes, dizziness, cough, runny nose, sore throat, shortness of breath, chest pain, palpitations, nausea, vomiting, diarrhea, constipation, abdominal pain, or any urinary issues. [facility] Past Medical History Medical History Low libido Bilateral hip pain Right hand paresthesia Gout Diabetes mellitus Post-viral cough syndrome Cough Nodule of finger of both hands Joint pain in fingers of both hands DDD (degenerative disc disease), lumbar Osteoarthritis of lower back Localized swelling of left foot B12 deficiency Elevated ferritin level Anxiety Mild sleep apnea Elevated fasting glucose Sleeping difficulty Witnessed episode of apnea Encounter to establish care Scalp psoriasis Osteoarthritis of shoulders, bilateral Hypertension Elevated PSA, less than 10 ng/ml Hyperlipidemia Hernia (~2020) Family History Family History Father Cancer Hypertension Mother Heart disease Other Cancer Social History Social History Smoking status: Former smoker Alcohol intake: never Substance use: never Lack of Transportation: No Lack of Food: Never True Current Housing: I Have Housing Concerned About Future Housing: No Difficulty Paying Gas/Electric Bills: No Difficulty Paying for Meds: No Currently Unemployed: No Education: Associate Degree Difficulty w/ Childcare or Family Care: No Comments At the time of my signature, I reviewed and agree with the nursing past medical, surgical, social, and family history. There is no relevant family history pertinent to the patient complaint. Exam Narrative: General: Well-developed, well nourished, in no apparent distress Head: Normocephalic, atraumatic Eyes: Pupils equally round and reactive to light bilaterally, EOM intact, sclera and conjunctive clear, no discharge, lids normal Ears: Right TM intact and clear, right ear canal clear, no drainage,, left TM intact, bulging, red, left ear canal red and swollen with green otorrhea, tenderness to palpation over the tragus and pulling of the pinna. Grossly hearing normal. Nose: Nares patent, no discharge, no inflammation, no sinus tenderness. Mouth: Oropharynx without lesions or masses, good dentition, MMM. Neck: Supple, trachea midline, no enlargement of anterior or posterior cervical nodes, no thyroid masses or goiter palpable. Cardio: Regular rate and rhythm, s1 and s2 normal, no murmur appreciated. Resp: Clear to auscultation bilaterally anteriorly and posteriorly, no rhonchi, rales, wheezing or rubs Course Course Emergency Course: Portions of this record may have been created with voice recognition software. Level of Care: Express Care Visit Vital Signs Vital signs: Vital Signs Temperature 36.8 C 05/01/25 15:02 Pulse Rate 68 05/01/25 15:02 Respiratory Rate 18 05/01/25 15:02 Blood Pressure 142/62 H 05/01/25 15:02 Pulse Oximetry 99 05/01/25 15:02 Oxygen Delivery Room Air 05/01/25 15:02 Temperature 36.8 C 05/01/25 15:02 Pulse Rate 68 05/01/25 15:02 Respiratory Rate 18 05/01/25 15:02 Blood Pressure 142/62 H 05/01/25 15:02 Pulse Oximetry 99 05/01/25 15:02 Oxygen Delivery Room Air 05/01/25 15:02 Vital signs reviewed Medical Decision Making MDM Narrative Medical decision making narrative: At the time of visit patient is resting comfortably on the exam table. Patient appears to be nontoxic. C/o left ear pain x1 day. He reports developed ear pain yesterday. Is having pain with biting down over his left ear. No fevers, chills, body aches. Denies any recent swimming. No drainage coming from the ear. On exam patient has right TM intact and clear, right ear canal clear, left ear canal swollen and red with green otorrhea, left TM bulging and red. Tenderness to palpation over the tragus and pulling the pinna. No nasal drainage, oropharynx normal, lung sounds clear, heart rates regular rate and rhythm. Plan: I suspect patient has left otitis media/otitis externa. Prescription for ofloxacin ear drops and amoxicillin was sent to the pharmacy. Supportive measures were discussed with the patient and they voiced understanding discharge instructions and agrees to treatment plan. Return precautions reviewed Differential Diagnosis Differential Diagnosis: Otitis media, otitis externa, eustachian tube dysfunction, cerumen impaction, upper respiratory infection, serous otitis Vital Signs Vital Signs: Vital Signs Temperature 36.8 C 05/01/25 15:02 Pulse Rate 68 05/01/25 15:02 Respiratory Rate 18 05/01/25 15:02 Blood Pressure 142/62 H 05/01/25 15:02 Pulse Oximetry 99 05/01/25 15:02 Oxygen Delivery Room Air 05/01/25 15:02 Temperature 36.8 C 05/01/25 15:02 Pulse Rate 68 05/01/25 15:02 Respiratory Rate 18 05/01/25 15:02 Blood Pressure 142/62 H 05/01/25 15:02 Pulse Oximetry 99 05/01/25 15:02 Oxygen Delivery Room Air 05/01/25 15:02 Discharge Plan Discharge Clinical Impression: Diffuse otitis externa, left ear Qualifiers: Chronicity: acute Qualified Code(s): H60.312 - Diffuse otitis externa, left ear Otitis media Qualifiers: Otitis media type: suppurative Chronicity: acute Laterality: left Recurrence: non-recurrent Spontaneous tympanic membrane rupture: without spontaneous rupture Qualified Code(s): H66.002 - Acute suppurative otitis media without spontaneous rupture of ear drum, left ear Patient Disposition: Home Condition: Stable Instructions: Antibiotic Form, Swimmer's Ear (ED), Ear Infection (ED) Additional Instructions: Take any prescribed medications only as directed-ofloxacin and amoxicillin Tylenol/motrin as needed for pain May use heating pad to alleviate pain If you get recurrent ear infections it may be warranted to follow up with ENT. Follow up with your PCP in 3-5 days if symptoms persist. Patient Language: French Prescriptions: New amoxicillin 875 mg tablet 875 mg PO Q12H 7 Days Qty: 14 0RF ofloxacin 0.3 % drops 5 drp otic (ear) BID 7 Days Qty: 5 0RF No Action cholecalciferol (vitamin D3) 125 mcg (5,000 unit) capsule 125 mcg PO DAILY venlafaxine 50 mg tablet 50 mg PO DAILY Qty: 90 3RF colchicine 0.6 mg tablet See Rx Instructions PO .COMPLEX PRN (Reason: gout) Qty: 60 1RF Rx Instructions: Day 1: take 2 tabs at the first sign of flare, followed by 1 tab 1hr later. PRN; Day 2 and after: take 1 tab 1-2x/day until flare resolves, call if no improvement clobetasol 0.05 % solution 1 applic topical DAILY PRN (Reason: psoriasis) Qty: 50 11RF tadalafil 5 mg tablet 5 mg PO DAILY Qty: 90 3RF atenolol 100 mg tablet 100 mg PO DAILY Qty: 90 3RF allopurinol 100 mg tablet 200 mg PO DAILY Qty: 180 3RF irbesartan 300 mg tablet 300 mg PO DAILY Qty: 90 3RF ezetimibe 10 mg tablet 10 mg PO DAILY Qty: 90 3RF Follow-up/Referrals: Amalia Martinez APRN [Primary Care Provider, [facility]] Time of Disposition: 15:06 Quality NIHSS Nursing Documentation ED NIHSS nursing documentation: reviewed/agree
--- OUTSIDE RECORDS SUMMARY | 2025-05-01 14:54 | XMS_ITS | Data Portability ---
Author Organization [employer], [facility] Address [address] [address] Assessment Encounter Date Assessment Date Assessment LastModified [...] solely on interaction of patient with NESSA [email or web address] Not available 05/09/2022 11:28:04 Plan of Treatment Reminders Order Date Submit Date Provider Last Modified By Organization Details Last Modified Time Details Appointments None recorded. Lab None recorded. Referral physical therapist referral 2024 025 [email or web address] Carmen Wan PT, [address], [address], [place], [address], 08:28:38 Procedures nerve conduction study/EMG, upper extremity (PROC) - BUE 2024 025 ROSAURA Murphy, [address], [place], [address], 13:31:56 Surgeries None recorded. Imaging MRI, cervical spine, w/o contrast - POSSIBLE STENOSIS 2024 025 [facility], [address] [facility], [place], [address], 08:20:58 XR, shoulder - RM 3 2024 025 Not available 10:52:52 US, upper extremity, nonvascular 2024 025 Not available 10:52:52 XR, hip, bilateral 2024 025 Not available 5 09:55:55 US, lower extremity, nonvascular 2024 025 Not available 09:55:56 Medication Orders None recorded. Patient TargetsNo targets recorded. Patient InstructionsNo instructions recorded. Reason for Referral Physical Therapist Referral for Acute low back pain Referring Physician: Steven Graham, [facility] Encounter Date: 01/04/2025 Results Created Date Observation Date Name Description Value Unit Range Abnormal Flag Note LastModifiedBy Organization Detail LastModifiedTime 05/01/20 22 05/05/2022 CBC (INCL UDES DIFF/ PLT) white blood cell count 6.0 thous and/u L 3.8-10 .8 normal Not Available [facility] [address], [place], [address], 05/05/2022 13:45:32 05/01/20 22 05/05/2022 CBC (INCL UDES DIFF/ PLT) red blood cell count 4.92 viola on/uL 4.20-5 .80 normal Not Available [address], [address], 05/05/2022 13:45:32 05/01/20 22 05/05/2022 CBC (INCL UDES DIFF/ PLT) hemoglobin 14.9 g/dL 13.2-1 7.1 normal Not Available [address], [address], 05/05/2022 13:45:32 05/01/20 22 05/05/2022 CBC (INCL UDES DIFF/ PLT) hematocrit 43.9 % 38.5-5 0.0 normal Not Available [address], [address], 05/05/2022 13:45:32 05/01/20 22 05/05/2022 CBC (INCL UDES DIFF/ PLT) MCV 89.2 fL 80.0-1 00.0 normal Not Available [address], [address], 05/05/2022 13:45:32 05/01/20 22 05/05/2022 CBC (INCL UDES DIFF/ PLT) MCH 30.3 pg 27.0-3 3.0 normal Not Available [address], [address], 05/05/2022 13:45:32 05/01/20 22 05/05/2022 CBC (INCL UDES DIFF/ PLT) MCHC 33.9 g/dL 32.0-3 6.0 normal Not Available [address], [address], 05/05/2022 13:45:32 05/01/20 22 05/05/2022 CBC (INCL UDES DIFF/ PLT) RDW 12.5 % 11.0-1 5.0 normal Not Available [address], [address], 05/05/2022 13:45:32 05/01/20 22 05/05/2022 CBC (INCL UDES DIFF/ PLT) platelet count 249 thous and/u L 140-40 0 normal Not Available [address], [address], 05/05/2022 13:45:32 05/01/20 22 05/05/2022 CBC (INCL UDES DIFF/ PLT) MPV 11.2 fL 7.5-12 .5 normal Not Available [address], [address], 05/05/2022 13:45:32 05/01/20 22 05/05/2022 CBC (INCL UDES DIFF/ PLT) absolute neutrophils 3312 cells /uL 1500-7 800 normal Not Available [address], [address], 05/05/2022 13:45:32 05/01/20 22 05/05/2022 CBC (INCL UDES DIFF/ PLT) absolute lymphocytes 1776 cells /uL 850-39 00 normal Not Available [address], [address], 05/05/2022 13:45:32 05/01/20 22 05/05/2022 CBC (INCL UDES DIFF/ PLT) absolute monocytes 702 cells /uL 200-95 0 normal Not Available [address], [address], 05/05/2022 13:45:32 05/01/20 22 05/05/2022 CBC (INCL UDES DIFF/ PLT) absolute eosinophils 162 cells /uL 15-500 normal Not Available [address], [address], 05/05/2022 13:45:32 05/01/20 22 05/05/2022 CBC (INCL UDES DIFF/ PLT) absolute basophils 48 cells /uL 0-200 normal Not Available [address], [address], 05/05/2022 13:45:32 05/01/20 22 05/05/2022 CBC (INCL UDES DIFF/ PLT) neutrophils 55.2 % normal Not Available [address], [address], 05/05/2022 13:45:32 05/01/20 22 05/05/2022 CBC (INCL UDES DIFF/ PLT) lymphocytes 29.6 % normal Not Available [facility] [address], [address], 05/05/2022 13:45:32 05/01/20 22 05/05/2022 CBC (INCL UDES DIFF/ PLT) monocytes 11.7 % normal Not Available [address], [address], 05/05/2022 13:45:32 05/01/20 22 05/05/2022 CBC (INCL UDES DIFF/ PLT) eosinophils 2.7 % normal Not Available [address], [address], 05/05/2022 13:45:32 05/01/20 22 05/05/2022 CBC (INCL UDES DIFF/ PLT) basophils 0.8 % normal Not Available [address], [address], 05/05/2022 13:45:32 05/01/20 22 05/05/2022 HS CRP hs CRP 0.9 mg/L normal Refer ence Range Optim al <1.0 Amanda galindo PS et al. Endoc r Pract .2017 ;23(S uppl 2):1- 87. For ages >17 Years : hs-CR P mg/L Risk Accor ding to AHA/C DC Guide lines <1.0 Lower relat verenice cardi ovasc ular risk. 1.0-3 .0 Linwood ge relat verenice cardi ovasc ular risk. [...] tion and infla mmati on. Not Available [facility] [address] [place], [address], 05/05/2022 13:45:33 05/01/2005/05/2022 PSA, TOTAL PSA, total 4.11 NG/mL < or = 4.00 high The total PSA value from this assay syste m is stand ardiz ed again st the [facility] stand ricky. The test resul t will [...] not be inter prete d as absol [place] evide nce of the prese nce or absen ce of disea se. Not Available [facility] [address] [place], [address], 05/05/2022 13:45:34 05/01/2005/05/2022 VITAM IN D,25- [place],TO [...] /MS is recom leanna d: order code [id number] (el ents >2yrs ). See Note 1 Note 1 For addit ional infor janna mahajan e refer to http: //[facility] manan villanuevaQue stDia gnost ics.c om/fa q/FAQ 199 (This link is being provi ded for infor haritha johnston/ yvrose gonzalez purpo ses only. ) Not Available [facility] [address] [place], [address], 05/05/2022 13:45:34 05/01/2005/05/2022 HEMOG LOBIN A1C hemoglobin [...] diabe wyatt for child dia. Not Available [facility] [address] [place], [address], 05/05/2022 13:45:35 05/01/20 22 05/05/2022 TESTO STERO NE, FREE (DIAL YSIS) AND TOTAL ,MS testosterone , total, MS 404 NG/dL 250-11 00 For addit ional infor janna mahajan refer to https ://ed ucati on.qu kostasAeromics. com/f aq/FA Q165 (This link is being provi ded for infor haritha nal/e ducat ional purpo ses only. ) (Note ) This test was devel oped and its alexei tical perfo rmanc e serge cteri stics have been deter mined by [employer]. It has not been clear ed or appro mariana by the FDA. This assay has been valid ated pursu ant to the CLIA regul ation s and is used for clini mika purpo ses. Not Available [facility] [address] [place], [address], 05/05/2022 13:45:35 05/01/20 22 05/05/2022 TESTO STERO NE, FREE (DIAL YSIS) AND TOTAL ,MS testosterone , free 55.7 pg/mL 30.0-1 35.0 (Note ) This test was devel oped and its alexei tical perfo rmanc e serge cteri stics have been deter mined by [employer]. It has not been clear ed or appro mariana by the FDA. This assay has been valid ated pursu ant to the CLIA regul ation s and is used for clini mika purpo ses. LUISA med fusio n [address] [facility] [address] [facility] [address] [phone] Roddy renee MD Not Available [facility] [address], [place], [address], 05/05/2022 13:45:35 11/14/19 25 11/14/2024 LAB DEVEL OPED TESTI NG lab developed testing normal Testi ng Perfo rmed At: [facility], [address], [place] [address], Labor atory Direc tor: Saurabh Frazier M.D Serum Pregn enolo [...] as inves tigat ional or for resea rch. Not Available [facility] [address] [place], [address], 11/17/2024 17:10:18 11/14/1911/14/2024 BTMG EXPAN DED MALE PRE comment: See Compon ents normal Testi ng Perfo rmed At: [facility], [address] [place] [address], Labor atory Direc tor: Saurabh Frazier M.D Not Available [facility] [address], [address], 11/17/2024 17:10:18 11/14/1911/17/2024 ESTRA DIOL, LC/MS estradiol, lc/MS 19.1 pg/mL <29.0 normal Testi ng Perfo rmed At: [facility], [address] [facility] [place] [address], Labor atory Direc tor: Saurabh Frazier M.D Not Available [facility] [address] [place], [address], 11/17/2024 17:10:19 11/14/19 25 11/14/2024 PSA, TOTAL PSA, total 1.830 NG/mL 0.000- 4.000 normal Testi ng Perfo rmed At: [facility], [address], [place] [address], Labor atory Direc tor: Saurabh Frazier M.D The above test is perfo rmed by [facility] [place]. Patie nt resul ts perfo rmed by diffe rent assay metho ds may not be cornelio rable . Not Available [facility] - [address], [address], 11/17/2024 17:10:19 11/14/19 25 11/14/2024 T4, FREE T4, free 1.58 NG/dL 0.89-1 .76 normal Testi ng Perfo rmed At: [facility], [address], [place] [address], Labor atory Direc tor: Saurabh Frazier M.D Not Available [facility] [address], [address], 11/17/2024 17:10:20 11/14/19 25 11/14/2024 THYRO ID PEROX IDASE ABS thyroid peroxidase abs 30 IU/mL <60 normal Testi ng Perfo rmed At: [facility], [address], [place] [address], Labor atory Direc tor: Saurabh Frazier M.D Not Available [facility] [address], [address], 11/17/2024 17:10:21 11/14/19 25 11/14/2024 CMP WITH GFR glucose 128 mg/dL 65-100 high Testi ng Perfo rmed At: [facility], [address], [place] [address], Labor atory Direc tor: Saurabh Frazier M.D Not Available [facility] [address], [address], 11/17/2024 17:10:21 11/14/19 25 11/14/2024 CMP WITH GFR BUN 24 mg/dL 6-20 high Not Available [facility] - [address], [address], 11/17/2024 17:10:21 11/14/19 25 11/14/2024 CMP WITH GFR creatinine, serum 1.3 mg/dL 0.7-1. 3 normal Not Available [facility] - [address], [address], 11/17/2024 17:10:21 11/14/19 25 11/14/2024 CMP WITH GFR sodium 142 mmol/ L 136-14 5 normal Not Available [facility] [address], [address], 11/17/2024 17:10:21 11/14/19 25 11/14/2024 CMP WITH GFR potassium 4.5 mmol/ L 3.5-5. 1 normal Not Available [facility] [address], [address], 11/17/2024 17:10:21 11/14/19 25 11/14/2024 CMP WITH GFR chloride 106 mmol/ L 100-11 0 normal Not Available [facility] [address], [address], 11/17/2024 17:10:21 11/14/19 25 11/14/2024 CMP WITH GFR CO2 24 mmol/ L 20-31 normal Not Available [facility] [address], [address], 11/17/2024 17:10:21 11/14/19 25 11/14/2024 CMP WITH GFR calcium 9.1 mg/dL 8.3-10 .6 normal Not Available [facility] [address], [address], 11/17/2024 17:10:21 11/14/19 25 11/14/2024 CMP WITH GFR total protein 6.5 g/dL 5.7-8. 2 normal Not Available [facility] [address], [address], 11/17/2024 17:10:21 11/14/19 25 11/14/2024 CMP WITH GFR albumin 4.3 g/dL 3.2-4. 8 normal Not Available [facility] [address], [address], 11/17/2024 17:10:21 11/14/1911/14/2024 CMP WITH GFR bilirubin, total 0.5 mg/dL 0.2-1. 1 normal Not Available [facility] [address], [address], 11/17/2024 17:10:21 11/14/1911/14/2024 CMP WITH GFR alkaline phosphatase 80 U/L 45-115 normal Not Available [facility] - [address], [address], 11/17/2024 17:10:21 11/14/19 25 11/14/2024 CMP WITH GFR ALT 43 U/L 0-48 normal Not Available [facility] [address], [address], 11/17/2024 17:10:21 11/14/1911/14/2024 CMP WITH GFR AST 27 U/L 0-38 normal Not Available [facility] [address], [address], 11/17/2024 17:10:21 11/14/19 25 11/14/2024 CMP WITH GFR albumin/glob ulin ratio 2.0 0.8-2. 0 normal Not Available [facility] [address], [address], 11/17/2024 17:10:21 11/14/19 25 11/14/2024 CMP WITH GFR BUN/creat ratio N/A 7.3 - 21.7 normal Not Available [facility] [address], [address], 11/17/2024 17:10:21 11/14/19 25 11/14/2024 CMP WITH GFR globulin 2.2 g/dL 2.1-3. 6 normal Not Available [facility] [address], [address], 11/17/2024 17:10:21 11/14/1911/14/2024 CMP WITH GFR GFR, estimated 58 mL/mi [...] sis Not Available [facility] [address], [address], 11/17/2024 17:10:21 11/14/19 25 11/14/2024 LH LH 4.8 mIU/m L 3.1-34 .6 normal Testi ng Perfo rmed At: [facility], [address] [place] [address], Labor atory Direc tor: Saurabh Frazier M.D Not Available [facility] [address], [address], 11/17/2024 17:10:22 11/14/19 25 11/14/2024 VITAM IN B12 vitamin B12 338 pg/mL 211-91 1 normal Testi ng Perfo rmed At: [facility], [address], [place] [address], Labor atory Dire tor: Saurabh Frazier M.D Not Available [facility] [address], [address], 11/17/2024 17:10:22 11/14/19 25 11/14/2024 TESTO STERO NE LCMS TOT albumin 4.3 g/dL 3.2-4. 8 normal Not Available [facility] [address], [address], 11/17/2024 17:10:23 11/14/19 25 11/14/2024 TESTO STERO NE LCMS TOT sex hormone bind globulin 41 nmol/ L 22-113 normal Not Available [facility] [address], [address], 11/17/2024 17:10:23 11/14/19 25 11/17/2024 TESTO STERO NE LCMS TOT testosterone , free lc/MS 6.7 NG/dL 3.7-20 .0 normal Testi ng Perfo rmed At: [facility], [address], [place] [address], Labor atory Direc tor: Saurabh Frazier M.D Not Available [facility] [address], [address], 11/17/2024 17:10:23 11/14/19 25 11/17/2024 TESTO STERO NE LCMS TOT testosterone , total lc/MS 377.9 NG/dL 264.0- 916.0 normal Not Available [facility] [address], [address], 11/17/2024 17:10:23 11/14/1911/14/2024 T3, FREE T3, free 2.9 pg/mL 2.3-4. 2 normal Testi ng Perfo rmed At: [facility], [address] [facility] [place] [address], Labor atory Dire tor: Saurabh Frazier M.D Not Available [facility] [address], [address], 11/17/2024 17:10:23 11/14/1911/14/2024 TSH TSH 1.308 uIU/m L 0.550- 4.780 normal Testi ng Perfo rmed At: [facility], [address] [facility] [place] [address], Labor atory Dire tor: Saurabh Frazier M.D Not Available [facility] [address], [address], 11/17/2024 17:10:24 11/14/1911/14/2024 CBC hematocrit 47.2 % 42.0-5 6.0 normal Testi ng Perfo rmed At: [facility], [address] [facility] [place] [address], Labor atory Dire tor: Saurabh Frazier M.D Not Available [facility] [address], [address], 11/17/2024 17:10:24 11/14/1911/14/2024 CBC hemoglobin 14.6 g/dL 13.2-1 8.0 normal Not Available [facility] [address], [address], 11/17/2024 17:10:24 11/14/19 25 11/14/2024 CBC red blood cell 4.72 M/uL 4.20-6 .00 normal Not Available [facility] [address], [address], 11/17/2024 17:10:24 11/14/19 25 11/14/2024 CBC white blood cell 6.5 K/uL 3.9-11 .4 normal Not Available [facility] [address], [address], 11/17/2024 17:10:24 11/14/19 25 11/14/2024 CBC MCV 100 fL 83-102 normal Not Available [facility] [address], [address], 11/17/2024 17:10:24 11/14/1911/14/2024 CBC MCHC 30.9 g/dL 29.5-3 5.5 normal Not Available [facility] [address], [address], 11/17/2024 17:10:24 11/14/19 25 11/14/2024 CBC MCH 30.9 pg 26.0-3 4.0 normal Not Available [facility] [address], [address], 11/17/2024 17:10:24 11/14/1911/14/2024 CBC RDW 14.0 % 11.0-1 5.5 normal Not Available [facility] [address], [address], 11/17/2024 17:10:24 11/14/19 25 11/14/2024 CBC platelet count 250 k/uL 140-40 0 normal Not Available [facility] [address], [address], 11/17/2024 17:10:24 11/14/19 25 11/14/2024 CBC MPV 11.4 fL 7.5-11 .6 normal Not Available [facility] [address], [address], 11/17/2024 17:10:24 11/14/1911/14/2024 VITAM IN D,25- HYDRO XY vitamin D,25-oh,tota l 77 NG/mL 30-100 normal Testi ng Perfo rmed At: [facility], [address] [facility] [place] [address], Labor atory Direc tor: Saurabh Frazier M.D [...] D > 150 ng/ml is consi dered poten tiall y toxic . Not Available [facility] - [address], [address], 11/17/2024 17:10:25 11/14/1911/14/2024 PROLA CTIN prolactin 7.3 NG/mL 2.1-17 .7 normal Testi ng Perfo rmed At: [facility], [address] [facility] [place] [address], Labor atory Direc tor: Saurabh Frazier M.D Not Available [facility] - [address], [address], 11/17/2024 17:10:25 11/14/1911/14/2024 HEMOG LOBIN A1C hemoglobin A1C 6.1 % < 5.7 high Testi ng Perfo rmed At: [facility], [address] [facility] [place] [address], Labor atory Dire tor: Saurabh Frazier M.D Diagn osis HbA1c Level Mariangel l <5.7 % Predi abete s 5.7-6 .4 % Diabe wyatt = or >6.5 % Not Available [facility] [address] [place], [address], 11/17/2024 17:10:26 11/14/19 25 11/14/2024 CRP, INFLA MMATI ON CRP, inflammation 1.8 mg/L <5.0 normal Testi ng Perfo rmed At: [facility] , [address] [facility] [place] [address], Labor atory Dire tor: Saurabh Frazier M.D Not Available [facility] [address] [place] [address], [address], 11/17/2024 17:10:26 03/25/20 25 nerve condu ction study /EMG, upper extre mity (PROC ) No observ ation record ed. [email or web address] [address], [place], [address], 04/01/2025 11:25:30 04/26/20 25 MRI, cervi mika spine , w/o contr ast No observ ation record ed. [email or web address] [facility] [address] [facility], [place], [address], 04/30/2025 08:08:55 Result Notes None recorded. Problems No Known [...] TABLET BY MOUTH EVERY 6 HOURS NEEDED FOR PAIN active Not Available Not Available No t [...] Updated DateTime 11/13/2024 185.42 cm 25.1 kg/m2 54989.55 g 74 /min 132/78 mm[Hg] Claire Dugan [facility] 11/13/2024 09:48:20 Date Recorded Body height Provider Name an d Address Organization Details Last Updated DateTime 01/04/2025 185.42 cm Dai David [employer] [facility] 01/04/2025 09:22:48 Date Recorded Body height Heart rate Systolic And Diastolic Provider Name and Address Organization Details Last Updated DateTime 02/10/2025 185.42 cm 76 /min 158/72 mm[Hg] Amee Sykes [employer] 02/10/2025 16:19:40 Date Recorded Body height Heart rate Systolic And Diastolic Provider Name and Address Organization Details Last Updated DateTime 03/22/2025 185.42 cm 60 /min 132/68 mm[Hg] Amee Sykes [employer] [facility] 03/22/2025 09:26:58 Date Recorded Body height Body mass index (BMI) Body weight Heart rate Systolic And Diastolic Provider Name and Address Organization Details Last Updated DateTime 05/09/2022 185.42 cm 25.1 kg/m2 32365.55 g 69 /min 160/77 mm[Hg] Patricia Hyatteder [facility] 10:43:10 Social History Question Answer Notes LastModified by Organizat ion Details LastModified Time What Is Your Relationship Status? [email or web address] Information not available 03/22/2025 Sex: Unknown Functional Status None recorded. Mental Status None recorded. Family History Relationship Description Onset Age of this Age Resolved Age Notes LastModified by Organization Details LastModified Time Unspecified Relation Heart disease [email or web address] Not available 2024 09:48:43 Unspecified Relation Hypertensive disorder [email or web address] Not available 2024 09:48:49 Unspecified Relation Malignant neoplastic disease [email or web address] Not available 2024 09:48:58 Medical History Condition Response Other Cancer N Coronary Artery Disease N HIV or AIDS N Gout N Kidney Stones N Hyperthyroidism N Breast Cancer N Head Trauma/Injury N Hernia Y Lung Cancer N Depression N Lung Disease N COPD N Hypothyroidism N Blood Clots N Pneumonia N Pacemaker N Parkinson's N Anxiety Disorder N Multiple Sprains N Arthritis Y Alcohol / Substance Abuse N Kidney Cancer N Cancer N Stroke N Melanoma N Amparo Danlos Syndrome (EDS) N Bowel Dysfunction N Neck Injury N Leg or Foot Ulcers N High Cholesterol N Skin Cancer N Liver Disease N Rheumatoid Arthritis N Fibromyalgia N Headaches N Gastric Issues N Concussion N Kidney Disease N Heart Problems N Scoliosis N Chronic use of Pain Medication N Prostate Cancer N Migraines N Thyroid Problems N Alzheimers N DVT N Autoimmune Disorder N Anemia N Multiple Sclerosis N Tendon Tear N Ulcers N Heart Attack (MN) N Osteopenia N Diabetes N Bleeding Disorder N Seizures/Epilepsy N Cardiac Stent N Tuberculosis N A-FIB N BPH N Lymphoma N Urinary Tract Infection N Back Problems N Diverticulitis N Dementia N Vision Problems N Asthma N Lupus N Fdc Medication Use N Peripheral Vascular Disease N Sleep Apnea N Sleep Disorder N GERD/Reflux N Hepatitis N Aneurysm N Thyroid Cancer N Heart Disease N Bronchitis N Pulmonary Embolism N Hypertension Y Osteoporosis N Past Encounters Encounter ID Performer Location Encounter Start Date Encounter Closed Date Diagnosis/Indication Diagnosis SNOMED-CT Code Diagnosis ICD10 Code Diagnosis IMO Codes Diagnosis Note [id number] Leo Graham, DO [facility] [address] [place] [address] 05/01/2022 08:04:08 05/07/2022 12:54:41 Pain of shoulder region 60772647 M25.511 M25.512 I discussed with the patient [...] which way he would like to proceed. [id number] MAICO CASTILLO PA-C [facility] [address] [facility] [address] [place] [address] 05/09/2022 10:28:37 05/15/2022 16:43:53 Bilateral shoulder osteoarthritis [id number] 92780 M19.011 M19.012 [id number] Leo Graham, [facility] [address] [facility] ,[address] [place] [address] 11/13/2024 08:11:40 11/18/2024 09:55:55 Pain of hip region [id number] M25.551 M25.552 [id number] We discussed several different options for potential [...] records and results, and/or the intake process. [id number] Leo Graham [facility] [address] [facility] ,[address] [place] [address] 01/04/2025 09:00:02 01/05/2025 14:07:12 Acute low back pain [id number] M54.50 [id number] I discussed with the patient regarding his back pain and discomfort . He has had some chronic back pain but then has had more acute pain as of late. I will start him in a physical therapy program for the back at this point. I will not make any additional changes today. We will call him in 4 weeks to discuss his progressio n to determine whether additional therapy would be necessary at that time. His hip complaint we will follow-up with him at a later time on. [id number] Leo Graahm, DO [facility] [address] [place] [address] 02/10/2025 15:38:56 02/11/2025 15:30:26 Chronic low back pain [id number] M54.50 G89.29 [id number] I discussed with the patient and I want him to continue the physical therapy as he is seeing some modest improvemen t. From the hip pain perspectiv e there is no real need to change anything at this time. He will will continue to progress with the therapy. We will see him back in 4 to 6 weeks. [id number] Leo Graham, DO [facility] [address] [place] [address] 03/22/2025 08:55:24 03/24/2025 10:52:52 Bilateral chronic pain of upper limbs [id number] M25.511 M25.512 G89.29 [id number] I discussed with the patient today and I do have some concerns regarding his neck that the neck appears more primary than even the shoulders at this time. I will go ahead and get the MRI of his cervical spine as well as get an EMG and nerve conduction test of the bilateral upper extremitie s to help clarify the diagnosis. Additional ly we discussed the shoulders and the patient is concerned about this but I would like to hold off on this and after discussion he will agree with this. We will reevaluate after the testing as below. I did spend over 30 minutes total in evaluation of the patient, review of records and results, and/or the intake process. Neck pain [id number] M54.2 [id number] Health Concerns Section Related Observation LastModified by Organization Sung LastModified Time None Recorded Concern Status LastModified by Organization Details LastModified Time None Recorded Advance Directives Directive None Recorded Payers Insurance Date Sequence Insurance Name Policy Number Policy Krishnan Covered Member ID Krishnan Member ID Guarantor Name 04/19/2025 2 [employer] (MEDICARE SUPPLEMENT) Fili Ricardo [id number] Fili Ricardo 04/19/2025 1 MEDICARE [place]: [facility] Fili Ricardo [id number] Fili Ricardo 11/10/2024 2 [facility] Fili Ricardo [id number] Fili Ricardo Notes Date Note Type Note Provider Name and Address Organization Details Recorded Time 05/09/2022 text/html 72 y/o M presents for group medical visit focusing on treatment [...] recent illness, CP, SOB. MAICO CASTILLO PA-C [address] [place], [address], [facility], [facility] 05/09/2022 11:45:38 11/13/2024 text/html The patient is [...] minutes to resolve. He has been receiving health care law specialist for an extended period, but it has ceased to provide relief. He also tried acupuncture, but found it only provided temporary relief. He has been undergoing [facility] therapy every two weeks, which has successfully [...] [place] [address] [place], [address], [employer] 11/13/2024 12:19:23 01/04/2025 text/html Patient is a 74 year old male who is known to me having been followed for his bilateral hip pain and also here today to discuss his back pain. His hips are about 50% improved but he is aware that this is still early in his treatment course. His back pain is mostly on the left lower back region overlying the sacroiliac region. It has been a persistent complaint 3 time is typically around 3-4 out of 10 in severity. There is no associated weakness, numbness, bowel or bladder [place] [address], [place], [address], [employer] [facility], [employer] 01/05/2025 13:57:31 02/10/2025 text/html Patient is a 74-year-old male who is known to me having been followed for his bilateral hip pain. He notices gradual improvement on his hips. He is only 8 weeks out and notices improvement this time around. It is still not wonderful improvement yet but it has been fairly good. He does state that the back pain is better with the therapy so far. He has had recent carpal tunnel surgery and has been having some pain from that which does confound his symptoms but [place] [address] [place], [address], [facility], [facility] 02/11/2025 13:47:22 03/22/2025 text/html Patient is a 75-year-old male who is known to me having been followed for multiple musculoskeletal complaints. The patient is approximately 14 weeks out from his biologic injection for his hips and doing much better overall. He also had biologic injections of his bilateral shoulders in 2021 and has noted good improvement through time but recently has started to have some increased pain however he does acknowledge he has had quite a bit of pain in his neck that has been difficult for him and he has followed with a chiropractor they recommended x-rays and pending an MRI and possible surgical referral. It was felt that he had some stenosis. His pain today is around the shoulder area but more posterior and seems to be [place] [address] [place], [address], [facility], [facility] 03/22/2025 14:19:42
--- OUTSIDE RECORDS SUMMARY | 2025-05-01 14:54 | XMS_ITS | Encounter Summary ---
Author Organization [facility] Address [facility] [place] [address] Care Team Providers Care Shovel Logger Name Role Phone Amalia Martinez Primary Care Provider [phone] Encounter Details Date Type Department Care Team (Late st Contact Info) Description 01/29/2025 [employer] Message Enc [facility] Pre-Admission Testing [address] [place] [address] Co[place], [facility] Provider surgical and medication instructions for 02/05/25 Social History Tobacco Use Types Packs/Day Years Used Date Smoking Tobacco: Former Cigarettes 1.5 25 Q uit: 07/07/2009 Smokeless Tobacco: Never Alcohol Use Standard Drinks/Week Comments Yes 5 (1 standard drink = 0.6 oz pur e alcohol) PHQ-2 Answer Date Recorded Patient Health Questionnaire-2 Score 0 01/25/2025 Sex and Gender Information Value Date Recorded Sex Assigned at Male 02/05/2025 6:17 AM CDT Legal Sex Male 10:36 AM CDT Gender Identity Not on file Sexual Orientation Not on file documented as of this encounter Plan of Treatment Not on file documented as of this encounter Visit Diagnoses Not on filedocumented in this encounter Care Teams Shovel Logger Relationship Specialty Start Date End Date Amalia Martinez APNP [address] [place] [address] PCP - General Nurse Practitioner Family 01/04/25 documented as of this encounter
--- OUTSIDE RECORDS SUMMARY | 2025-05-01 14:54 | XMS_ITS | Clinical Summary ---
Author Organization [facility] Address [address] [place] [address] Care Team Providers Care Insurance Verification Specialist Name Role Phone Amalia Martinez SEAN Primary Care Provider [phone] Allergies Active Allergy Reactions Criticality Noted Date Comments Statins Joint Pain Medium 01/22/2025 Medications allopurinol (ZYLOPRIM) 100 MG tablet Take 2 tablets (200 mg total) by mouth daily. 5 Active venlafaxine (EFFEXOR) 50 MG tablet Take 1 tablet (50 mg total) by mouth daily. 5 Active tadalafil (CIALIS) 5 MG tablet Take 1 tablet (5 mg total) by mouth. Active irbesartan (AVAPRO) 300 MG tablet Take 1 tablet (300 mg total) by mouth daily. Active ezetimibe (ZETIA) 10 MG tablet Take 1 tablet (10 mg total) by mouth daily. 5 Active atenolol (TENORMIN) 100 MG tablet Take 1 tablet (100 mg total) by mouth daily. 0 Active clobetasol (TEMOVATE) 0.05 % external solution APPLY TO THE AFFECTED AREA(S) ONCE DAILY NEEDED FOR PSORIASIS 5 Active ammonium lactate (LAC-HYDRIN) 12 % lotion APPLY TWICE DAILY TO ARMS AND HANDS TO INCREASE MOISTURE AND REDUCE EASY BRUISING. IT CAN ALSO BE USED SAFELY ON NECK, CHEST AND LEGS IF DESIRED. FACIAL USE IS FINE WELL, BUT SCENT IS SOMETIMES BOTHERSOME Active vitamin D3, cholecalciferol , 125 mcg capsule Take 1 capsule (125 mcg total) by mouth daily. Active B Complex Cap capsule Take 1 capsule by mouth daily. Active traMADol (ULTRAM) 50 MG tabletIndicatio ns:Acute Pain < 7 Day Supply Take 1 tablet (50 mg total) by mouth every 6 (six) hours as needed for Pain. Indications: Acute Pain < 7 Day Supply 20 tablet Active traMADol (ULTRAM) 50 MG tabletIndicatio ns:Acute Pain < 7 Day Supply Take 1 tablet (50 mg total) by mouth every 6 (six) hours as needed for Pain. Indications: Acute Pain < 7 Day Supply 10 tablet Active Active Problems Problem Noted Date Diagnosed Date Carpal tunnel syndrome on right 01/26/2025 Encounters Date Type Department Care Team Description 04/20/2025 5:53 AM COUNT TEAM CLERK - 04/20/2025 11:59 PM COUNT TEAM CLERK Hospital Encounter [facility] [place] [address] Steven Graham, DO Discharge Disposition: Home or Self Care (Routine Discharge) 04/20/2025 Travel 04/06/2025 Telephone [facility] Medical [facility] Orthopedic & Sports Medicine [facility] [address] [place] [address] Brandon Reece MD Appointment Request 02/11/2025 9:00 AM CDT Office Visit [facility] [address] [place] [address] Brandon Reece MD Postop Followup (Right cts sx 02/05/25) 02/11/2025 Travel 02/05/2025 8:35 AM CDT - 02/05/2025 9:[address] [facility] [place] [address] Brandon Reece MD right endoscopic carpal tunnel release 02/05/2025 7:58 AM CDT Anesthesia Event [facility] [place] [address] Deb Leary MD [place], Samantha Rae, CATHETER BUILDER 02/05/2025 6:17 AM CDT - 02/05/2025 9:55 AM CDT Hospital Encounter [facility] [place] [address] Brandon Reece MD Discharge Disposition: Home or Self Care (Routine Discharge) 02/05/2025 Travel 01/29/[address] [employer] [address] [facility] [place] [address] Co[facility] Provider surgical and medication instructions for 02/05/25 01/29/2025 Travel from Last 3 Months Immunizations Immunization Administration Dates Next Due Fluzone High Dose (IIV, trivalent, 0.5mL) 2023 Fluzone High Dose - >Age 65 (Prefilled Syringe) 02/16/2023,03/31/2022 Family History Medical History Relation Comments Cancer Father Hypertension Father Heart Disease Mother Relation Status Comments Father Mother Social History Tobacco Use Types Packs/Day Years Used Date Smoking Tobacco: Former Cigarettes 1.5 25 Q uit: 07/07/2009 Smokeless Tobacco: Never Tobacco Cessation:Counseling Given: No Alcohol Use Standard Drinks/Week Comments Yes 5 (1 standard drink = 0.6 oz pur e alcohol) PHQ-2 Answer Date Recorded Patient Health Questionnaire-2 Score 0 01/25/2025 Sex and Gender Information Value Date Recorded Sex Assigned at Male 02/05/2025 6:17 AM CDT Legal Sex Male 10:36 AM CDT Gender Identity Not on file Sexual Orientation Not on file Last Filed Vital Signs Vital Sign Reading Time Taken Comments Blood Pressure 119/76 02/11/2025 9:23 AM CDT Pulse 56 02/11/2025 9:23 AM CDT Temperature 35.9 C (96.7 F) 02/11/2025 8:53 AM CDT Respiratory Rate 16 02/05/2025 9:49 AM CDT Oxygen Saturation 100% 02/05/2025 9:49 AM CDT Inhaled Oxygen Concentration - - Weight 89.9 kg (198 lb 3.2 oz) 02/11/2025 8:53 A M CDT Height 185.4 cm (6' 1) 02/11/2025 8:53 AM CDT Body Mass Index 26.15 02/11/2025 8:53 AM CDT Plan of Treatment Health Maintenance Due Date Last Done Comments Colorectal Cancer Screening Colonoscopy (10 Years) 1950 Hepatitis C 1969 DTaP, Tdap and Td Vaccines ( 1 - Tdap) 1970 Pneumococcal Vaccine: 50+ Years (1 of 1 - PCV) 2001 Zoster Vaccines (1 of 2) 2001 AAA SCREENING 02/22/2016 Annual Medicare Wellness Visit 02/22/2016 COVID-19 Vaccine (2 - 2024-2 6 season) 2025 02/29/2024 Influenza Adult (#1) 2025 02/29/2024, 02/16/2023, 03/31/2022 RSV Immunization or 60+ Years (1 - 1-dose 75+ series) 2026 PHQ-2 (Physician [place]) Completed 01/25/2025 Hepatitis A Vaccines Aged Out No long er eligible based on patient's age to complete this topic Meningococcal B Vaccine Aged Out No l onger eligible based on patient's age to complete this topic Meningococcal Vaccine Aged Out No boaz janae eligible based on patient's age to complete this topic RSV Immunizations Under 20 Months Aged Out No longer eligible b ased on patient's age to complete this topic Procedures Procedure Name Priority Date/Time Associated Diagnosis Comments MRI CERV SPINE WO CON Routine 04/20/2025 7:24 AM COUNT TEAM CLERK Cervicalgia WRIST ARTHROSCOP,RELEAS E XVERS LIG 02/05/2025 7:58 AM CDT Carpal tunnel syndrome on right Case Notes SCHED BY WENDY 01/26/2025 [facility] PHONE ASSESS from Last 3 Months Results * MRI CERV SPINE WO CON (04/20/2025 7:24 AM COUNT TEAM CLERK) Anatomical Region Laterality Modality Spine Magnetic Resonan ce 04/24/2025 7:29 AM COUNT TEAM CLERK Impressions 04/24/2025 7:34 AM COUNT TEAM CLERK IMPRESSION: 1. Severe neuroforaminal stenosis on the right at C3/C4 and C4/C5. Moderate neuroforaminal stenosis on the right C2/C3. 2. Severe neuroforaminal stenosis on the left at C3/C4 and C4/C5. Under neural foraminal stenosis on the left at C5/C6. 3. No significant cervical central canal stenosis or cord signal abnormality. Slight effacement of ventral thecal sac and left lateral recess at C4/C5 and C6/C7. 4. Straightening of the normal cervical lordosis. No acute osseous abnormality. Referred By: STEVEN GRAHAM Interpreted By: Yang Rueda MD, 04/24/2025 7:29 AM Narrative 04/24/2025 7:34 AM COUNT TEAM CLERK [address] [address] EXAMINATION: MRI of the cervical spine without contrast 04/20/2025 INDICATION: Posterior neck pain TECHNIQUE: Multiplanar multisequence MR imaging of the cervical spine was performed without intravenous contrast. COMPARISON: None FINDINGS:There is straightening of the normal cervical lordosis with preservation of the vertebral body heights and disc spaces. Bone marrow signal is within normal limits. No acute fracture or dislocation. There are small rounded lesions within the C5 and C7 vertebral bodies to the right of midline demonstrating hyperintense T1 and T2 signal, compatible with hemangiomas. No ligamentous discontinuity or signal abnormality Partially visualized intracranial contents are unremarkable. Cervical spinal cord is unremarkable in course caliber contour and signal. No prevertebral edema. No paraspinal mass or fluid collection No stenosis at the foramen magnum or C1/C2 level C2/C3: Disc space narrowing and facet arthropathy causing moderate right neural foraminal stenosis C3/C4: Uncovertebral facet arthropathy causing severe bilateral foraminal stenosis. C4/C5: Small left paracentral foraminal disc/osteophyte complex, uncovertebral arthropathy and facet arthropathy causing mild effacement of the ventral thecal sac and left lateral recess and severe bilateral foraminal stenosis. C5/C6: Uncovertebral and facet arthropathy causing moderate left neural foraminal stenosis C6/C7: Disc bulging and uncovertebral arthropathy causing mild effacement of the ventral thecal sac and left lateral recess and mild left neural foraminal stenosis C7/T1: Disc space narrowing and facet arthropathy causing mild left neural foraminal stenosis. Procedure Note Yang Rueda MD - 04/24/2025 [facility] [address] [place], [place] [address] EXAMINATION: MRI of the cervical spine without contrast 04/20/2025 INDICATION: Posterior neck pain TECHNIQUE: Multiplanar multisequence MR imaging of the cervical spine wasperformed without intravenous contrast. COMPARISON: None FINDINGS:There is straightening of the normal cervical lordosis withpreservation of the vertebral body heights and disc spaces. Bone marrowsignal is within normal limits. No acute fracture or dislocation. Thereare small rounded lesions within the C5 and C7 vertebral bodies to theright of midline demonstrating hyperintense T1 and T2 signal, compatiblewith hemangiomas. No ligamentous discontinuity or signal abnormality Partially visualized intracranial contents are unremarkable. Cervicalspinal cord is unremarkable in course caliber contour and signal. Noprevertebral edema. No paraspinal mass or fluid collection No stenosis at the foramen magnum or C1/C2 level C2/C3: Disc space narrowing and facet arthropathy causing moderate rightneural foraminal stenosis C3/C4: Uncovertebral facet arthropathy causing severe bilateral foraminalstenosis. C4/C5: Small left paracentral foraminal disc/osteophyte complex,uncovertebral arthropathy and facet arthropathy causing mild effacement ofthe ventral thecal sac and left lateral recess and severe bilateralforaminal stenosis. C5/C6: Uncovertebral and facet arthropathy causing moderate left neuralforaminal stenosis C6/C7: Disc bulging and uncovertebral arthropathy causing mild effacementof the ventral thecal sac and left lateral recess and mild left neuralforaminal stenosis C7/T1: Disc space narrowing and facet arthropathy causing mild left neuralforaminal stenosis. IMPRESSION: 1. Severe neuroforaminal stenosis on the right at C3/C4 and C4/C5.Moderate neuroforaminal stenosis on the right C2/C3. 2. Severe neuroforaminal stenosis on the left at C3/C4 and C4/C5. Underneural foraminal stenosis on the left at C5/C6. 3. No significant cervical central canal stenosis or cord signalabnormality. Slight effacement of ventral thecal sac and left lateralrecess at C4/C5 and C6/C7. 4. Straightening of the normal cervical lordosis. No acute osseousabnormality. Referred By: STEVEN GRAHAM Interpreted By: Yang Rueda MD, 04/24/2025 7:29 AM us Steven Graham DO MRI Final Resu lt from Last 3 Months Insurance MEDICARE [facility] Care Teams Insurance Verification Specialist Relationship Specialty Start Date End Date Amalia Martinez APNP [address] [address] PCP - General Nurse Practitioner Family 01/04/25
[2025-05-01 15:02] VITALS: BP 142/62; PULSE 68; RESP 18; TEMP 36.8; O2SAT 99
== END 2025-05-01 15:08 | disposition home or self-care (01) ==
PROVIDERS: Emergency Provider Nurse Practitioner Family; PCP Nurse Practitioner Family
DX: H60.312 Diffuse otitis externa, left ear (principal); H66.002 Acute suppurative otitis media without spontaneous rupture of ear drum, left ear; E11.9 Type 2 diabetes mellitus without complications; E78.5 Hyperlipidemia, unspecified; I10 Essential (primary) hypertension; Z87.891 Personal history of nicotine dependence
CPT/HCPCS: 99213; G0463